=== PATIENT | male | born 1975 | race African-American/Black ===

== ENCOUNTER 2023-10-17 08:54 | Outpatient (AMB) | payer OTHER, SELFPAY ==
--- NOTE | 2023-10-17 09:00 | MHC.PC.OV ---
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: No Accompanied by: Self / Same As Patient Allergies No Known Allergies Allergy (Verified 10/17/23 09:15) Medication List - Last Reconciled 10/17/23 by Emma Kennedy MD No Known Home Meds Tobacco use date assessed: 10/17/23 Dental Screening Dental Screen Date: 10/17/23 Did you have a dental visit in the last 12 months?: Yes Did you have a dental problem in the last 6 months where you did not have access to dental care?: No Was dental information given to patient?: Patient has dentist HPI HPI Comments History of Present Illness Details This is a 48-year-old male that comes for his physical exam as a new patient. He has elevated blood pressure readings but denies ever having medication for blood pressure. Occasional chest pain but no shortness of breath. Small when he was a teenager. Has never had a colonoscopy. No change in bowel or bladder habits. [facility] Surgical History History of tooth extraction Family History Mother Breast cancer Mental health disorder Father Cancer Mental health disorder Social History (Updated 10/17/23 @ 09:21 by Emma Kennedy MD) Housing: House Alcohol intake: current Alcohol intake frequency: holidays/special occasions only Alcohol type: beer Patient Tobacco Use Status: Former Tobacco user e-Cigarette/Vaping Use: Never Used Second Hand Smoke Exposure: No service: No Current occupational status: employed Current occupational exposures/hazards: No Cognitive needs: No Hearing needs: No Vision needs: Yes Questionnaire PHQ-9 Over the last 2 weeks, how often have you been bothered by any of the following problems? 1. Little interest or pleasure in doing things: not at all 2. Feeling down, depressed, or hopeless: not at all 3. Trouble falling or staying asleep, or sleeping too much: not at all 4. Feeling tired or having little energy: not at all 5. Poor appetite or overeating: not at all 6. Feeling bad about yourself - or that you are a failure or have let yourself or your family down: not at all 7. Trouble concentrating on things, such as reading the newspaper or watching television: not at all 8. Moving or speaking so slowly that other people could have noticed. Or the opposite - being so fidgety or restless that you have been moving around a lot more than usual: not at all 9. Thoughts that you would be better off or of hurting yourself in some way: not at all Total score: 0 Depression Screening Interpretation: Negative Depression Screening Done: Yes 77801 - PHQ-9 Billing: Yes Source: Developed by Drs. Horacio Qiu, Marilee Baez, Mark Foreman and colleagues, with an educational evelyn from [employer]. Thrive Questionnaire Date Thrive assessed: 10/17/23 I am a: Patient What is your living situation today?: I have a steady place to live Within the past 12 months, did the food you bought not last and you didn't have the money to get more?: Never true Within the past 12 months, did you worry whether your food would run out before you got money to buy more?: Never true Do you have trouble paying for medicines?: No Do you have trouble getting transportation to medical appointments?: No Do you have trouble paying your heating and electricity bill?: No Do you have trouble taking care of your child, family member or friend?: No Do you have trouble with day-to-day activities such as bathing, preparing meals, shopping, managing finances, etc.?: No Are you currently unemployed and looking for a job?: No Are you interested in more education?: No Please select the resources that you would like help with: None Currently or been in a relationship where the following occur: no concerns reported THRIVE Score: 0 AUDIT C Alcohol Use Questionnaire (AUDIT-C) 1. How often do you have a drink containing alcohol?: Monthly or less 2. How many drinks containing alcohol do you have on a typical day when you are drinking?: 1 or 2 3. How often do you have six or more drinks on one occasion?: Never Total Score: 1 Score Reviewed/Action Taken: No RENETTA-7 AMB Questionnaire RENETTA-7 Date RENETTA - 7 assessed: 10/17/23 Feeling nervous, anxious, or on edge: 0 = Not at all Not being able to stop or control worryin = Not at all Worrying too much about different things: 0 = Not at all Trouble relaxin = Not at all Being so restless that it is hard to sit still: 0 = Not at all Becoming easily annoyed or irritable: 0 = Not at all Feeling afraid as if something awful might happen: 0 = Not at all Total RENETTA-7 score (0-4 normal; 5-9 mild; 10-14 moderate; 15-21 severe): 0 Source: Developed by Drs. Horacio Qiu, Marilee Baez, Mark Foreman and colleagues, with an educational evelyn from [employer]. RENETTA-7 Assessment Billing RENETTA-7 Assessment Tool: RENETTA-7 Assessment 86809 Review of Systems Const All systems reviewed & are unremarkable except as noted in HPI and below Card Reports chest pain at rest, Reports chest pain with activity, Denies edema, Denies irregular heart rhythm, Denies claudication, Denies dyspnea, Denies dyspnea on exertion, Denies orthopnea, Denies paroxysmal nocturnal dyspnea and Denies slow heart rate Resp Denies cough, Denies dyspnea and Denies dyspnea on exertion Physical exam (Primary Care) Vital Signs: Last Vital Signs BP 150/90 H 10/17/23 09:28 Care Plan Goal for BP management: Advised low-salt diet Next steps: Repeat blood pressure in 3 weeks by nurse navigator. BMI result Body Mass Index 29.4 Tobacco/Smoking Status: Tobacco use Status Tobacco use date assessed 10/17/23 10/17/23 09:08 Patient Tobacco Use Status Former Tobacco user 10/17/23 09:21 e-Cigarette/Vaping Use Never Used 10/17/23 09:21 PHQ-9: PHQ-9 Score PHQ-9: Total score 0 10/17/23 09:29 Depression Screening Interpretation: Negative Thrive Assessment: Date of Thrive Assessment Date Thrive assessed 10/17/23 10/17/23 09:08 Currently or been in a relationship where the following occur: no concerns reported Const Orientation/consciousness: patient oriented x3 HENMT Head: Yes normal to inspection, Yes normocephalic and Yes atraumatic Ears: external ears normal Eyes General: appearance normal, both eyes and all related structures Eyelids: Yes eyelids normal Conjunctivae: conjunctivae normal Neck Neck: Yes normal visual inspection and Yes supple Resp Effort & Inspection: normal respiratory effort Auscultation: clear to auscultation bilaterally Cardio Jugular venous distension: no JVD Rate: regular rate Rhythm: regular rhythm Heart sounds: S1 normal heart sound present and S2 normal heart sound present GI Inspection: Yes normal to inspection Palpation (GI): Soft to palpation and nontender Auscultation: normal bowel sounds Skin General skin exam: no rashes or lesions noted Neuro General: patient oriented x3 and no focal motor deficits Extrem General: Yes full ROM Psych Appearance: grossly normal Immunizations Boostrix Tdap 2.5 Lf unit-8 mcg-5 Lf/0.5 mL intramuscular syringe Performing Provider: Emma Kennedy MD Performing Location: [facility] Administered by: RYLIE Dejesus on 10/17/23 09:33 Dose Route Admin Location Dispensed Lot Number Expiration Date 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 Orders: Orders Comprehensive [facility]. Panel Fast Today Z00.00 - Encounter for general adult medical examination without abnormal findings ECG 12 lead EKG Today R07.9 - Chest pain, unspecified Lipid Panel Today Z00.00 - Encounter for general adult medical examination without abnormal findings TDaP Immunization Today Z23 - Encounter for immunization Referrals Open Access Screening Colonoscopy Referral Z12.11 - Encounter for screening for malignant neoplasm of colon Coding Level of Care Code New Pt Prev Care 40-64y(35097) Diagnoses Physical exam Z00.00 Additional Codes RENETTA-7 Assessment Billing - RENETTA-7 Assessment Tool: RENETTA-7 Assessment [id number] ([id number]) Time Spent (min) 33
[2023-10-17 09:02] VITALS: BP 150/100; BMI 29.4
[2023-10-17 09:28] VITALS: BP 150/90
== END 2023-10-17 09:42 | disposition home or self-care (01) ==
PROVIDERS: PCP Internal Medicine; Visit Provider Internal Medicine
DX: Z00.00 Encounter for general adult medical examination without abnormal findings (principal); Z23 Encounter for immunization
CPT/HCPCS: 90471; 90715; 99386

== ENCOUNTER 2024-09-09 15:18 | Outpatient (AMB) | payer OTHER, SELFPAY ==
[2024-09-09 15:19] VITALS: BP 146/92; PULSE 65; TEMP 36.3; O2SAT 95; BMI 28.3
--- NOTE | 2024-09-09 15:19 | MHC.PC.OV ---
Vital Signs 09/09/24 15:19 Height 6 ft 3 in Weight 226 lb 4 oz BMI 28.3 BP 146/92 H Blood Pressure Location Lt brachial Position Sitting Pulse 65 Pulse Source Pulse Oximeter Temp 97.3 F Temp Source Temporal Artery Scan Pulse Oximetry (%) 95 Oxygen Delivery Method Room Air Intake Visit Reasons: r/s from 03/12 bp Supervisor Functional Testing Required: No Accompanied by: Self / Same As Patient Allergies No Known Allergies Allergy (Verified 09/09/24 15:33) Medication List - Last Reconciled 09/09/24 by Emma Kennedy MD No Known Home Meds Tobacco use date assessed: 09/09/24 Dental Screening Dental Screen Date: 09/09/24 HPI HPI Comments History of Present Illness Details The patient is a 49-year-old male presenting with elevated blood pressure and chest pain. He notes that his blood pressure readings vary, with higher values observed during healthcare visits and normalization on re-checking. The patient does not currently check his blood pressure at home despite owning a monitor. He relates the elevated in-office readings, at times, to stress due to coming directly from work. The patient experiences intermittent left-sided chest pain, which occurs when he is relaxed or sitting and is described as faint. The pain does not occur with exertion and has no associated symptoms like shortness of breath. He has no significant family history of colon cancer and has not noticed any gastrointestinal symptoms that could be of concern. He recently had influenza and underwent an evaluation at urgent care, where a low heart rate was noted, prompting a visit to the emergency department. His medical workup, including blood tests and chest X-rays, did not reveal any abnormalities. [facility] Surgical History History of tooth extraction Family History Mother Breast cancer Mental health disorder Father Cancer Mental health disorder Social History Housing: House Alcohol intake: current Alcohol intake frequency: holidays/special occasions only Alcohol type: beer Patient Tobacco Use Status: Former Tobacco user e-Cigarette/Vaping Use: Never Used Second Hand Smoke Exposure: No service: No Current occupational status: employed Current occupational exposures/hazards: No Cognitive needs: No Hearing needs: No Vision needs: Yes Questionnaire PHQ-9 Over the last 2 weeks, how often have you been bothered by any of the following problems? 1. Little interest or pleasure in doing things: not at all 2. Feeling down, depressed, or hopeless: not at all 3. Trouble falling or staying asleep, or sleeping too much: not at all 4. Feeling tired or having little energy: not at all 5. Poor appetite or overeating: not at all 6. Feeling bad about yourself - or that you are a failure or have let yourself or your family down: not at all 7. Trouble concentrating on things, such as reading the newspaper or watching television: not at all 8. Moving or speaking so slowly that other people could have noticed. Or the opposite - being so fidgety or restless that you have been moving around a lot more than usual: not at all 9. Thoughts that you would be better off or of hurting yourself in some way: not at all Total score: 0 Depression Screening Interpretation: Negative Depression Screening Done: Yes 56318 - PHQ-9 Billing: Yes Source: Developed by Drs. Horacio Qiu, Marilee Baez, Mark Foreman and colleagues, with an educational evelyn from [employer]. Thrive Questionnaire Date Thrive assessed: 09/09/24 I am a: Patient What is your living situation today?: I have a steady place to live Within the past 12 months, did the food you bought not last and you didn't have the money to get more?: Never true Within the past 12 months, did you worry whether your food would run out before you got money to buy more?: Never true Do you have trouble paying for medicines?: No Do you have trouble getting transportation to medical appointments?: No Do you have trouble paying your heating and electricity bill?: No Do you have trouble taking care of your child, family member or friend?: No Do you have trouble with day-to-day activities such as bathing, preparing meals, shopping, managing finances, etc.?: No Are you currently unemployed and looking for a job?: No Are you interested in more education?: No Please select the resources that you would like help with: None Currently or been in a relationship where the following occur: No concerns reported THRIVE Score: 0 AUDIT C Alcohol Use Questionnaire (AUDIT-C) 1. How often do you have a drink containing alcohol?: Monthly or less 2. How many drinks containing alcohol do you have on a typical day when you are drinking?: 1 or 2 3. How often do you have six or more drinks on one occasion?: Never Total Score: 1 Score Reviewed/Action Taken: No RENETTA-7 AMB Questionnaire RENETTA-7 Date RENETTA - 7 assessed: 09/09/24 Feeling nervous, anxious, or on edge: 0 = Not at all Not being able to stop or control worryin = Not at all Worrying too much about different things: 0 = Not at all Trouble relaxin = Not at all Being so restless that it is hard to sit still: 0 = Not at all Becoming easily annoyed or irritable: 0 = Not at all Feeling afraid as if something awful might happen: 0 = Not at all Total RENETTA-7 score (0-4 normal; 5-9 mild; 10-14 moderate; 15-21 severe): 0 Source: Developed by Drs. Horacio Qiu, Marilee Baez, Mark Foreman and colleagues, with an educational evelyn from [employer]. RENETTA-7 Assessment Billing RENETTA-7 Assessment Tool: RENETTA-7 Assessment 84338 Review of Systems Const All systems reviewed & are unremarkable except as noted in HPI and below Card Denies chest pain at rest, Denies chest pain with activity, Denies edema, Denies irregular heart rhythm, Denies claudication, Denies dyspnea, Denies dyspnea on exertion, Denies orthopnea, Denies paroxysmal nocturnal dyspnea and Denies slow heart rate Resp Denies cough, Denies dyspnea and Denies dyspnea on exertion GI Denies abdominal pain, Denies change in bowel habits, Denies excessive flatus, Denies nausea and Denies vomiting Neuro Denies lack of coordination Physical exam (Primary Care) Vital Signs: Last Vital Signs Temp 97.3 F 09/09/24 15:19 Pulse 65 09/09/24 15:19 BP 146/92 H 09/09/24 15:19 Pulse Ox 95 09/09/24 15:19 Oxygen Delivery Method Room Air 09/09/24 15:19 BMI result Body Mass Index 28.3 Tobacco/Smoking Status: Tobacco use Status Tobacco use date assessed 09/09/24 09/09/24 15:28 Patient Tobacco Use Status Former Tobacco user 09/09/24 15:28 e-Cigarette/Vaping Use Never Used 09/09/24 15:28 PHQ-9: PHQ-9 Score PHQ-9: Total score 0 09/09/24 15:28 Depression Screening Interpretation: Negative Thrive Assessment: Date of Thrive Assessment Date Thrive assessed 09/09/24 09/09/24 15:28 Currently or been in a relationship where the following occur: No concerns reported Resp Effort & Inspection: normal respiratory effort Auscultation: clear to auscultation bilaterally Cardio Jugular venous distension: no JVD Rate: regular rate Rhythm: regular rhythm Heart sounds: S1 normal heart sound present and S2 normal heart sound present Extrem General: Yes full ROM Coding Level of Care Code Est Pt Level 3 (56722) Complex EM visit Add On G2211 Diagnoses Essential hypertension I10 Chest pain R07.9 Additional Codes RENETTA-7 Assessment Billing - RENETTA-7 Assessment Tool: RENETTA-7 Assessment 50837 ([id number]) PHQ-9 - 76992 - PHQ-9 Billing: Yes ([id number]) Time Spent (min) 19 Assessment & Plan Assessment & Plan (1) Essential hypertension: Code(s): I10 - Essential (primary) hypertension Category: Medical (2) Chest pain: Code(s): R07.9 - Chest pain, unspecified Category: Medical Plan I emphasized the need for the patient to monitor blood pressure at home to identify trends outside of clinical settings and adjust diet by reducing salt intake to control his essential hypertension better. I ordered an EKG to assess the patient's cardiac rhythm, considering the occurrence of chest pain. Comprehensive blood work including sugars, kidney, liver function, and cholesterol levels were ordered to evaluate overall health. Additionally, Cologuard testing was offered to assess the risk of colon cancer, contingent upon previous family history and current symptoms, with the potential for a colonoscopy if results indicated a concern. Patient was informed and verbally consented to the use of an ambient scribe for clinic note documentation during this visit. I discussed the variability of the patient's blood pressure readings and the potential benefit of home monitoring, emphasizing the importance of managing stress and dietary changes, including reducing salt intake. I ordered an EKG to provide further insights into the patient's cardiac rhythm with an acknowledgment of the chest pain reported. Further lab work to review metabolic functions was planned, coinciding with his next visit. I detailed the risk assessment advantages of Cologuard testing for colon cancer and provided instructions for completion. Follow-up plans were outlined, including future visits to monitor the effectiveness of these interventions and evaluate laboratory results. Orders: Orders Lipid Panel Today E78.5 - Hyperlipidemia, unspecified, R07.9 - Chest pain, unspecified Comprehensive [facility]. Panel Fast Today R07.9 - Chest pain, unspecified ECG 12 lead EKG Today R07.9 - Chest pain, unspecified Thyroid Stimulating Hormone Today R07.9 - Chest pain, unspecified Referrals Cologuard Test Z12.11 - Encounter for screening for malignant neoplasm of colon, Z12.12 - Encounter for screening for malignant neoplasm of rectum Patient Instructions: - Monitor blood pressure regularly at home. - Reduce salty foods in your diet. - Complete the EKG as ordered and notify of any new symptoms. - Use the Cologuard kit as per instructions to assess colon cancer risk. - Follow up for lab results and further evaluation as scheduled. - Seek immediate care if chest pain becomes more frequent or severe.
--- OUTSIDE RECORDS SUMMARY | 2024-09-09 18:02 | XMS_ITS | Data Portability ---
Author Organization [facility] [employer] [facility] [address] Address [address] [place] [address] Assessment No assessment recorded. Plan of Treatment Reminders Order Date Submit Date Provider Last Modified By Organization Details Last Modified Time Details Appointments None recorded. Lab None recorded. Referral None recorded. Procedures None recorded. Surgeries None recorded. Imaging None recorded. Medication Orders ofloxacin 0.3 % eye drops 2023 024 [id number], [address], [place], [phone], 4 11:34:18 Patient TargetsNo targets recorded. Patient InstructionsNo instructions recorded. Reason for Referral None Reported. Problems No Known Problems Procedures Surgical History Date Name Laterality Status Provider Name and Address Organization Details Recorded Time 4 OC-DOT PHYSICAL completed Tiana Smith [facility] [employer] 2024 08:39:07 3 OC-UDS Send Out Template DOT completed BISHNU STEVENSON [facility] 10/23/2022 14:38:31 Imaging Results None recorded. Procedure Notes None recorded. Medical Equipment None Reported. Allergies No known drug allergies Medications Name Sig Start Date Stop Date Status Note LastModified by Organization Details LastModified Time amoxicillin 500 mg capsule TAKE 1 CAPSULE BY MOUTH THREE TIMES DAILY 04/04 completed Not Available Not Available Not Available ofloxacin 0.3 % eye drops Instill 1 drop 4 times a day by ophthalmi c route for 10 days. 2023 active Not Available Not Available Not Avai lable ibuprofen 600 mg tablet TAKE 1 TABLET BY MOUTH EVERY 4 TO 6 HOURS NEEDED 11/16 /2024 completed Not Available Not Available Not Available Vitals Date Recorded Pain severity - 0-10 verbal numeric rating [Score] - Reported Body weight Body mass index (BMI) Body height Body temperature Respiratory rate Oxygen saturation Oxygen saturation in Arterial blood by Pulse oximetry Heart rate Systolic blood pressure Diastolic blood pressure Provider Name and Address Organization Details Last Updated DateTime 4 0 824809. 28 g 28.1 kg/m2 190.5 cm 97 [degF] 14 /min 97 % 97 % 64 /min 142 mm[Hg] 94 mm[Hg] Padma Eder PA - [facility] 11:28:41 Social History Question Answer Notes LastModified by Organizat ion Details LastModified Time Tobacco Smoking Status Never Smoker Padma alva PA - [facility] 04/04/2024 11:26:45 What Is Your Level Of Alcohol Consumption? None Information not available 04/04/2024 Have You Had A Flu Shot This Season? Yes Information not available 04/04/2024 Do You Use Any Illicit Or Recreational Drugs? No Information not available 04/04/2024 Have You Recently Traveled Abroad? No Information not available 04/04/2024 Do You Or Have You Ever Used Any Other Forms Of Tobacco Or Nicotine? No Information not available 04/04/2024 Sex: Unknown Functional Status None recorded. Mental Status None recorded. Family History Relationship Description Onset Age of this Age Resolved Age Notes LastModified by Organization Details LastModified Time Father No current problems or disability Not available 04/04 11:26:21 Mother No current problems or disability Not available 04/04 11:26:21 Medical History No medical history recorded. Past Encounters Encounter ID Performer Location Encounter Start Date Encounter Closed Date Diagnosis/Indication Diagnosis SNOMED-CT Code Diagnosis ICD10 Code Diagnosis Note [id number] [address] [address] 03/03/2017 15:25:47 03/03/2017 16:09:08 [id number] [address] [address] [address] 03/04/2017 15:04:42 03/04/2017 16:53:54 [id number] [address] [place] [address] 04/18/2015 09:10:20 04/18/2015 10:00:05 [id number] CECILIA PULIDO [address] [facility] [place] [address] 10/23/2022 14:20:04 10/23/2022 15:24:13 History and physical examination, occupation 892055639 Z02.1 [id number] CECILIA Hagan [address] [place] [address] 2024 08:02:22 2024 09:03:50 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 Denies any RX. Refer to scanned DOT physical exam forms and DOT certificat e for exam findings. Physical examination 588 0005 Z02.4 [id number] CECILIA Hagan [address] [place] [address] 04/04/2024 11:21:15 04/04/2024 11:36:01 Acute conjunctivitis of right eye 0299129098 11720 H10.31 Based on your presentati on and exam, you are going diagnosed with Conjunctiv itis. I am going to cover you for a bacterial infection in the eye with antibiotic eye drops. Sometimes these symptoms can be caused by a virus or allergies. Viral infections with spontaneou sly resolve after 7-10 days and do not require treatment. If it is an allergy cause sometime oral allergy medication s will help with these symptoms or a allergy eye drop that can be purchased OTC. The following are my recommenda tions to help with your symptoms and this diagnosis: 1. Do not rub your eyes this can cause it to spread or damage the cornea of your eye.2. Wash surfaces such as cell phones, remotes, door knob frequently , because this is how it is transmitte d to others.3. Do not wear contacts for at least 1 week if you have contacts.4 . No makeup5. You can take Ibuprofen or Tylenol for discomfort if you are not allergic to them.6. If you get lubricatin g eye drops and put them in the refrigerat or - this can help with itching and discomfort . You should be seen again if you develop any of the following symptoms1. Eye pain or pressure behind the eye.2. Redness or significan t swelling of the eyelid or around the eye3. Headache4. Fever > 100.55. No improvemen t in current symptoms in the next 1 week. Thank you for using [facility] today, please feel free to contact us with any questions or concerns. Health Concerns Section Related Observation LastModified by Organization Detai ls LastModified Time None Recorded Concern Status LastModified by Organization Details LastModified Time None Recorded Advance Directives Directive None Recorded Payers Encounter Date Sequence Insurance Name Policy Number Policy Borrego Covered Member ID Borrego Member ID Guarantor Name 03/03/2017 1 [place] [id number] Favio L Rony [id number] Favio Rony 03/04/2017 1 [place] [id number] Favio L Rony [id number] Favio Rony 10/23/2022 OC-ESCREEN Favio Rony [id number] Favio Rony 2024 OC-PAY AT TIME OF SERVICE 2022 Favio Rony OTHER OTHER Favio Rony 04/04/2024 1 [facility] [id number] Favio Rony [id number] Favio Rony Notes Date Note Type Note Provider Name and Address Organization Details Recorded Time 04/04/2024 text/html 49 y/o male with 1 week of R eye redness and discharge, discomfort, but no real pain, no blurry vision CECILIA Hagan [address] [place], [address], PA - [facility] 04/04/2024 11:40:13
== END 2024-09-09 15:44 | disposition home or self-care (01) ==
LOC: HO.HMCH 15:19
PROVIDERS: PCP Internal Medicine; Visit Provider Internal Medicine
DX: I10 Essential (primary) hypertension (principal); R07.9 Chest pain, unspecified

== ENCOUNTER → 2024-09-09 15:18 | Outpatient (BNVA) | payer OTHER, SELFPAY | PROVIDERS: PCP Internal Medicine; Visit Provider Internal Medicine | DX: R07.9 Chest pain, unspecified (principal); I10 Essential (primary) hypertension | CPT/HCPCS: 96127 ==

== ENCOUNTER 2024-11-16 08:32 | Outpatient (AMB) | payer OTHER, SELFPAY ==
--- OUTSIDE RECORDS SUMMARY | 2024-11-16 08:44 | XMS_ITS | Data Portability ---
Author Organization [facility]ECILIA [facility] [address] Address [address] [place] [address] Assessment No assessment recorded. Plan of Treatment Reminders Order Date Submit Date Provider Last Modified By Organization Details Last Modified Time Details Appointments None recorded. Lab None recorded. Referral None recorded. Procedures None recorded. Surgeries None recorded. Imaging None recorded. Medication Orders ofloxacin 0.3 % eye drops 2023 024 [facility][id number], [address] [place], [place], [phone], 4 11:34:18 Patient TargetsNo targets recorded. Patient InstructionsNo instructions recorded. Reason for Referral None Reported. Problems No Known Problems Procedures Surgical History Date Name Laterality Status Provider Name and Address Organization Details Recorded Time 4 OC-DOT PHYSICAL completed Tiana Smith [place] - [facility] 2024 08:39:07 3 OC-UDS Send Out Template DOT completed BISHNU STEVENSON [facility] 10/23/2022 14:38:31 Imaging Results None recorded. Procedure [...] MOUTH EVERY 4 TO 6 HOURS NEEDED 04/04 completed Not Available Not Available Not Available Vitals Date Recorded Body weight Body mass index (BMI) Body height Body temperature Respiratory rate Oxygen saturation Oxygen saturation in Arterial blood by Pulse oximetry Heart rate Systolic blood pressure Diastolic blood pressure Provider Name and Address Organization Details Last Updated DateTime 4 915808. 28 g 28.1 kg/m2 190.5 cm 97 [degF] 14 /min 97 % 97 % 64 /min 142 mm[Hg] 94 mm[Hg] Padma Rafael Pena PA - [facility] 4 11:28:41 Social History Question Answer Notes LastModified by [employer] Details LastModified Time Tobacco Smoking Status Never Smoker Padma Rafael Pena null, PA - [facility] 04/04/2024 11:26:45 Have You Had A Flu Shot This Season? Yes Information not available 04/04/2024 Have You Recently Traveled Abroad? No Information not available 04/04/2024 Sex: Unknown Functional Status Question Answer Note LastModified by [employer] Details LastModified Time Do you use any illicit or recreational drugs? No Information not available 04/04/2024 Do you or have you ever used any other forms of tobacco or nicotine? No Information not available 04/04/2024 What is your level of alcohol consumption? None Information not available 04/04/2024 Mental Status None recorded. Family History Relationship [...] SNOMED-CT Code Diagnosis ICD10 Code Diagnosis Note [id number] [address] [address] 03/03/2017 15:25:47 03/03/2017 16:09:08 [id number] [address] [place] [address] 03/04/2017 15:04:42 03/04/2017 16:53:54 [id number] [address] [place] [address] 04/18/2015 09:10:20 04/18/2015 10:00:05 [id number] Duke Anguiano NP [address] [place] [address] 10/23/2022 14:20:04 10/23/2022 15:24:13 History and physical examination, occupation [id number] Z02.1 [id number] CECILIA Hagan [address] [address] [place] [address] 2024 08:02:22 2024 09:03:50 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 Denies any RX. Refer to scanned DOT physical exam forms and DOT certificat e for exam findings. Physical examination 588 0005 Z02.4 [id number] [facility]ILIA Hagan [address] [facility] [address] [place] [address] 04/04/2024 11:21:15 04/04/2024 11:36:01 Acute conjunctivitis of right eye 2245001109 45727 H10.31 Based on your presentati on and [...] Recorded Advance Directives Directive None Recorded Payers Insurance Date Sequence Insurance Name Policy Number Policy Borrego Covered Member ID Borrego Member ID Guarantor Name 04/04/2024 1 [facility] [id number] Favio Garrisonon [id number] Favio Garrisonon 04/04/2024 PAY AT TOS Favio Garrisonon OTHER OTHER Favio Rony 04/04/2024 1 [employer] (PPO) [id number] Favio L Rony [id number] Favio Garrisonon 04/04/2024 OC-ESCREEN Favio Rony [id number] Favio Garrisonon 04/04/2024 OC-PAY AT TIME OF SERVICE 2022 Favio Torresnson OTHER OTHER Favio Rony Notes Date Note Type Note Provider Name and Address Organization Details Recorded Time 04/04/2024 text/html 49 y/o male with 1 week of R eye redness and discharge, discomfort, but no real pain, no blurry vision CECILIA Hagan [address] [place], [address], PA - [facility] 04/04/2024 11:40:13
[2024-11-16 08:49] VITALS: BP 130/86; BMI 27.6
--- NOTE | 2024-11-16 08:49 | MHC.PC.OV ---
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 Accompanied by: Self / Same As Patient Allergies No Known Allergies Allergy (Verified 11/16/24 09:07) Medication List - Last Reconciled 11/16/24 by Emma Kennedy MD No Known Home Meds Tobacco use date assessed: 09/09/24 Dental Screening Dental Screen Date: 11/16/24 Did you have a dental visit in the last 12 months?: Yes Did you have a dental problem in the last 6 months where you did not have access to dental care?: No Was dental information given to patient?: Patient has dentist HPI HPI Comments History of Present Illness Details The patient is a 49-year-old male presenting with chest pain and hypertension. The chest pain was previously experienced on the left side of the chest, occurring intermittently during the day, particularly with movement, and not at rest or during sleep. The pain was not persistent throughout the day and would come and go without a consistent pattern. The patient has a history of hypertension, which has been well-controlled with recent home blood pressure readings showing 129/88 mmHg. No medications are currently being taken for hypertension, and the patient monitors blood pressure regularly at home. Preventative care measures include a recommendation for colon cancer screening using a stool test (Cologuard), which the patient plans to complete despite a previous scheduling conflict. [facility] Surgical History History of tooth extraction Family History Mother Breast cancer Mental health disorder Father Cancer Mental health disorder Social History Housing: House Alcohol intake: current Alcohol intake frequency: holidays/special occasions only Alcohol type: beer Patient Tobacco Use Status: Former Tobacco user e-Cigarette/Vaping Use: Never Used Second Hand Smoke Exposure: No service: No Current occupational status: employed Current occupational exposures/hazards: No Cognitive needs: No Hearing needs: No Vision needs: Yes Questionnaire PHQ-9 Over the last 2 weeks, how often have you been bothered by any of the following problems? 1. Little interest or pleasure in doing things: not at all 2. Feeling down, depressed, or hopeless: not at all 3. Trouble falling or staying asleep, or sleeping too much: not at all 4. Feeling tired or having little energy: not at all 5. Poor appetite or overeating: not at all 6. Feeling bad about yourself - or that you are a failure or have let yourself or your family down: not at all 7. Trouble concentrating on things, such as reading the newspaper or watching television: not at all 8. Moving or speaking so slowly that other people could have noticed. Or the opposite - being so fidgety or restless that you have been moving around a lot more than usual: not at all 9. Thoughts that you would be better off or of hurting yourself in some way: not at all Total score: 0 Depression Screening Interpretation: Negative Depression Screening Done: Yes 52871 - PHQ-9 Billing: Yes Source: Developed by Drs. Horacio Qiu, Marilee Baez, Mark Foreman and colleagues, with an educational evelyn from [employer]. Thrive Questionnaire Date Thrive assessed: 09/09/24 I am a: Patient What is your living situation today?: I have a steady place to live Within the past 12 months, did the food you bought not last and you didn't have the money to get more?: I choose not to answer this question Within the past 12 months, did you worry whether your food would run out before you got money to buy more?: I choose not to answer this question Do you have trouble paying for medicines?: No Do you have trouble getting transportation to medical appointments?: No Do you have trouble paying your heating and electricity bill?: No Do you have trouble taking care of your child, family member or friend?: No Do you have trouble with day-to-day activities such as bathing, preparing meals, shopping, managing finances, etc.?: No Are you currently unemployed and looking for a job?: Yes Are you interested in more education?: No Please select the resources that you would like help with: None Currently or been in a relationship where the following occur: I choose not to answer THRIVE Score: 0 AUDIT C Alcohol Use Questionnaire (AUDIT-C) 1. How often do you have a drink containing alcohol?: Never Total Score: 0 Score Reviewed/Action Taken: No RENETTA-7 AMB Questionnaire RENETTA-7 Date RENETTA - 7 assessed: 09/09/24 Feeling nervous, anxious, or on edge: 0 = Not at all Not being able to stop or control worryin = Not at all Worrying too much about different things: 0 = Not at all Trouble relaxin = Not at all Being so restless that it is hard to sit still: 0 = Not at all Becoming easily annoyed or irritable: 0 = Not at all Feeling afraid as if something awful might happen: 0 = Not at all Total RENETTA-7 score (0-4 normal; 5-9 mild; 10-14 moderate; 15-21 severe): 0 Source: Developed by Drs. Horacio Qiu, Marilee Baez, Mark Foreman and colleagues, with an educational evelyn from [employer]. RENETTA-7 Assessment Billing RENETTA-7 Assessment Tool: RENETTA-7 Assessment 44092 Review of Systems Const All systems reviewed & are unremarkable except as noted in HPI and below Card Denies chest pain at rest, Reports chest pain with activity, Denies edema, Denies irregular heart rhythm, Denies claudication, Denies dyspnea, Denies dyspnea on exertion, Denies orthopnea, Denies paroxysmal nocturnal dyspnea and Denies slow heart rate Resp Denies cough, Denies dyspnea and Denies dyspnea on exertion GI Denies abdominal pain, Denies change in bowel habits, Denies excessive flatus, Denies nausea and Denies vomiting Denies urinary hesitancy, Denies urinary incontinence and Denies urinary urgency Musc Denies abnormal gait, Denies atrophy, Denies deformity and Denies limited range of motion Skin/Breast Denies bleeding lesions, Denies changing lesions and Denies rash Neuro Denies abnormal gait, Denies behavioral changes and Denies lack of coordination Psych Denies behavioral changes Physical exam (Primary Care) Vital Signs: Last Vital Signs BP 130/86 11/16/24 08:49 BMI result Body Mass Index 27.6 Tobacco/Smoking Status: Tobacco use Status Tobacco use date assessed 09/09/24 11/16/24 08:55 Patient Tobacco Use Status Former Tobacco user 11/16/24 08:55 e-Cigarette/Vaping Use Never Used 11/16/24 08:55 PHQ-9: PHQ-9 Score PHQ-9: Total score 0 11/16/24 09:12 Depression Screening Interpretation: Negative Thrive Assessment: Date of Thrive Assessment Date Thrive assessed 09/09/24 11/16/24 08:55 Currently or been in a relationship where the following occur: I choose not to answer Resp Effort & Inspection: normal respiratory effort Auscultation: clear to auscultation bilaterally Cardio Jugular venous distension: no JVD Rate: regular rate Rhythm: regular rhythm Heart sounds: S1 normal heart sound present and S2 normal heart sound present Extrem General: Yes full ROM Coding Level of Care Code Est Pt Level 3 (45848) Complex EM visit Add On G2211 Diagnoses Chest pain R07.9 Additional Codes RENETTA-7 Assessment Billing - RENETTA-7 Assessment Tool: RENETTA-7 Assessment 81065 ([id number]) PHQ-9 - 01941 - PHQ-9 Billing: Yes ([id number]) Time Spent (min) 19 Assessment & Plan Assessment & Plan (1) Chest pain: Code(s): R07.9 - Chest pain, unspecified Category: Medical Plan The plan includes conducting an EKG and laboratory tests to rule out cardiac causes of the chest pain, as the patient has experienced intermittent pain on the left side of the chest. The patient is advised to continue monitoring blood pressure at home, given the history of hypertension, and to maintain regular follow-ups. Preventative care includes completing the colon cancer screening with a stool test Cologuard) as previously recommended. Patient was informed and verbally consented to the use of an ambient scribe for clinic note documentation during this visit.
== END 2024-11-16 09:13 | disposition home or self-care (01) ==
LOC: HO.HMCH 08:33
PROVIDERS: PCP Internal Medicine; Visit Provider Internal Medicine
DX: R07.9 Chest pain, unspecified (principal)

== ENCOUNTER → 2024-11-16 08:32 | Outpatient (REF) | payer OTHER, SELFPAY ==
--- NOTE | 2024-11-16 09:26 | ECG_ITS ---
Test Reason : R07.9 - Chest pain, unspecified Blood Pressure : */* mmHG Vent. Rate : 56 BPM Atrial Rate : 56 BPM P-R Int : 180 ms QRS Dur : 106 ms QT Int : 434 ms P-R-T Axes : 69 58 59 degrees QTcB Int : 418 ms Sinus bradycardia Nonspecific T wave abnormality Abnormal ECG No previous ECGs available Referred By: Emma Kennedy Electronically Signed By: JEN TOLENTINO MD
== END ==
LOC: HO.CARD 08:32
PROVIDERS: PCP Internal Medicine; Visit Provider Internal Medicine
DX: R07.9 Chest pain, unspecified (principal); I10 Essential (primary) hypertension; Z13.31 Encounter for screening for depression
CPT/HCPCS: 93005; 96127

== ENCOUNTER → 2024-11-16 09:26 | Outpatient (BNV) | payer OTHER, SELFPAY | PROVIDERS: PCP Internal Medicine; Visit Provider Internal Medicine Cardiovascular Disease | DX: R00.1 Bradycardia, unspecified (principal) | CPT/HCPCS: 93010 ==

== ENCOUNTER → 2024-12-21 03:23 | Outpatient (BNV) | payer OTHER, SELFPAY | PROVIDERS: PCP Internal Medicine; Visit Provider Specialist | DX: M25.461 Effusion, right knee (principal) | CPT/HCPCS: 73560 ==

== ENCOUNTER 2024-12-21 03:59 | Inpatient (IN) | payer OTHER, SELFPAY ==
--- NOTE | ~2024-12-21 | CT_ITS ---
EXAMINATION: CT KNEE WITHOUT CONTRAST, RIGHT CLINICAL INFORMATION: Right knee pain COMPARISON: None available. TECHNIQUE: Axial CT was performed from the mid thigh to the mid lower leg without contrast. Coronal and sagittal reformatted images were generated from the original axial data set. ALARA: The examination used one or more of the following radiation dose reduction techniques: Automated exposure control, iterative reconstruction, and/or adjustment of mA and/or KV. DLP: 281 mGY*cm Menisci: ACL/PCL: ACL and PCL appear grossly intact Extensor mechanism: Although not optimally demonstrated by CT, quadriceps tendon appears avulsed from the superior pole patella and retracted 2-3 cm. There is a joint effusion with higher density lobulated mass within the dependent portion of the joint effusion.. There is a corticated osseous fragment at the distal end of the retracted quadriceps tendon. There may be superficial fibers still intact. MCL/LCL: MCL is grossly intact. LCL complex is grossly intact. Bones/Marrow: No fractures are evident. Intercondylar tubercles are peaked. There are small marginal osteophytes involving the medial femoral condyle, not side of the lateral femoral condyle, lateral tibial plateau, and patella. There is a densely corticated lobulated lucency in the superficial superior pole of patella 9 mm in size, approximately the same size as the same size as a bony fragment that is attached to the distal end of a quadricep tendon. Soft tissues: Grossly unremarkable. CT/CT knee RT wo IV con IMPRESSION: Avulsion of the quadriceps tendon with 2-3 cm retraction. Avulsed bony fragment appears corticated raising question of chronicity. There is a complex joint effusion. High density within the effusion could represent blood products or synovial thickening. Electronically signed by: Win Larose MD 12/21/2024 12:47 PM EDT
--- NOTE | ~2024-12-21 | XR_ITS ---
CLINICAL HISTORY: right knee pain 2 view right knee Comparison: None provided Findings: Bones intact. No dislocations. No significant loss of joint space, osteophytes, or erosions. There is a joint effusion. There is a questionable intra-articular osseous loose body. No radiopaque foreign body. IMPRESSION: 1. Joint effusion with possible intra-articular loose body. Consider CT to further evaluate. This document has been electronically signed by: Delfino Joshua MD on 12/21/2024 06:43:53
[2024-12-21 04:04] VITALS: BP 145/91; PULSE 69; RESP 16; TEMP 36.7; O2SAT 95; BMI 27.5
--- NOTE | 2024-12-21 07:58 | ED.EXTPRO ---
HPI - Extremity Problem General Chief complaint: Extremity Problem Stated complaint: knee pain/inj Time Seen by Provider: 12/21/24 07:57 Source: patient and RN notes reviewed Mode of arrival: ambulatory Limitations: no limitations History of Present Illness ED Provider: Mary Costa PA-C HPI Narrative: This is a 49-year-old male, with no known medical problems, who presents emergency department with complaints of right knee pain since 1:00 p.m. yesterday. Patient states that while he jumped to dive into a pool he felt a popping sensation in his right knee. He states that he had pain at that time. He states that gradually over the course of last night into this morning he has had increased pain and swelling to his right knee. Denies any former injury to his knee in the past. Patient states that he does not have any pain at rest however states that pain worsens with weight-bearing. He took ibuprofen last night which provided him with some relief. No other complaints or concerns at this time. MD Complaint: extremity pain and extremity swelling Location: right and lower extremity Quality: aching Radiation: none Relieving factors: cold therapy, immobilization and rest Exacerbating factors: weight bearing and walking Associated symptoms: denies other symptoms Related Data Home Medications ?Medication ?Instructions ?Recorded ?Confirmed multivit,Ca,min-iron 8 mg-folic 1 tab PO DAILY 12/21/24 12/21/24 acid 200 mcg-lycopene 600 mcg tablet (Men's Daily Multivitamin) Allergies Allergy/AdvReac Type Severity Reaction Status Date / Time No Known Allergies Allergy Verified 12/21/24 04:07 Review of Systems Review of Systems: Yes all other systems are reviewed and are negative Constitutional: Constitutional: Reports as per HPI [facility] Past Medical History Surgical History History of tooth extraction Family History Family History Mother Breast cancer Mental health disorder Father Cancer Mental health disorder Social History Social History Housing: House Unable to assess alcohol history related to: Unknown Alcohol intake: current Alcohol intake frequency: holidays/special occasions only Alcohol type: beer Patient Tobacco Use Status: Former Tobacco user Smoked in Last 30 Days: No e-Cigarette/Vaping Use: Never Used Second Hand Smoke Exposure: No Advance Directives: No Advance Directives Information Provided: No Nutrition Risks: No Nutritional Risk service: No Current occupational status: employed Current occupational exposures/hazards: No Cognitive needs: No Hearing needs: No Vision needs: Yes Physical Exam Vital Signs: Vital Signs: Last Vital Signs Temp 97.6 F 12/21/24 15:23 Pulse 64 12/21/24 15:23 Resp 16 12/21/24 15:23 BP 155/109 H 12/21/24 15:23 Pulse Ox 97 12/21/24 15:23 O2 Del Method Room Air 12/21/24 15:23 BMI result Body Mass Index 27.5 Const: General: cooperative, comfortable and no acute distress Orientation/consciousness: patient oriented x3 Limitations: no limitations HEENT: Head: Yes normal to inspection, Yes normocephalic and Yes atraumatic Ears: hearing grossly normal bilaterally General nose exam: Normal external nose present Face and sinus: Yes normal facial exam Mouth: Normal oral and palatal mucosa present, oropharynx normal and moist mucous membranes Throat: Yes posterior oropharynx normal Eyes: General: appearance normal, both eyes and all related structures Eyelids: Yes eyelids normal Conjunctivae: conjunctivae normal Sclerae: sclerae normal Pupils: Equal, round and reactive pupils present EOM: EOMs intact bilaterally Neck: Neck: Yes normal visual inspection, Yes full ROM and Yes no lymphadenopathy Lymphatic: no lymphadenopathy noted Chest: Chest palpation & inspection: normal inspection of the chest Resp: Effort & Inspection: normal respiratory effort and able to speak in complete sentences Auscultation: clear to auscultation bilaterally, no crackles, no rales, no rhonchi and no wheezes Cardio: Rate: regular rate Rhythm: regular rhythm Heart sounds: S1 normal heart sound present and S2 normal heart sound present GI: Inspection: Yes normal to inspection Skin: General skin exam: no rashes or lesions noted Trauma: no lacerations or abrasions Wounds: no wounds Neuro: General: patient oriented x3 and moves all extremities Cranial nerves: Yes Equal, round and reactive pupils present Extrem: Other: Right knee with moderate edema noted throughout the entire knee, nontender, able to flex approximately 20-30 degrees. He is unable to perform a straight leg raise due to weakness. Unable to extend at the knee. Strong distal pulse. No overlying skin changes. No open wounds or lacerations. No calf tenderness. Achilles tendon is intact. No palpable deformity noted at the distal quad. General: Yes normal to inspection Right upper extremity: normal to inspection Left upper extremity: normal to inspection Right lower extremity: normal to inspection Left lower extremity: normal to inspection Medications Administered Generic Name Dose Route Start Last Admin Trade Name Freq PRN Reason Stop Dose Admin Sodium Chloride 3 ml 12/21/24 16:00 12/21/24 15:45 0.9 % Sodium Chloride Flush 3 Ml Syringe IVFLUSH Not Given QSHIFT NICHOLAS Discontinued Medications Generic Name Dose Route Start Last Admin Trade Name Freq PRN Reason Stop Dose Admin Acetaminophen 975 mg 12/21/24 08:20 12/21/24 08:30 Acetaminophen 325 Mg Tablet PO 12/21/24 08:21 975 mg ONCE ONE Administration Medical Decision Making Medical Decision Making [facility] Narrative: This is a 49-year-old male who presents emergency department with concerns of right knee pain since yesterday. He states that he jumped and felt a popping sensation in his right knee. He has had increased swelling and pain with weight-bearing since. On arrival, vital signs reveal mildly hypertensive at 145/91. Due to prolonged ER wait times, patient was not officially seen until proximally 8:15 a.m. this morning. X-ray was ordered prior to my evaluation, which revealed a joint effusion with possible intra-articular loose body. Given this finding, I am obtaining a CT scan. Differential diagnoses include internal ligament derangement, quadricep tendon rupture, fracture, sprain, strain. Will medicate with Tylenol p.o. awaiting for the CT scan. 10:00AM - patient patient only waiting for CT scan results as patient went at approximately 8:45 a.m. this morning. Awaiting official report. 12:05PM - spoke to CT techs to see what the delay was, they are reaching out to the radiology team. 12:38PM - still experiencing significant delays, I reached out to radiology numerous times without solution. It appears that there were multiple images missing therefore they could not put in a official radiology report. 12:45PM- report returns, there is an avulsion of the quadriceps tendon with 2-3 cm retraction, avulsed bony fragment appears corticated raising concern for chronicity. There is a complex joint effusion, high density within the effusion could represent blood products or synovial thickening. Given this finding, I reached out to the orthopedic [facility] who will assess patient [id number] - patient was assessed by Alexy Combs PA-C. There is a high concern for quadriceps tendon rupture therefore patient will be admitted to the orthopedic surgical service, patient will be made NPO at midnight. Likely surgery tomorrow. Will obtain basic labs, type and screen, EKG for medical clearance. Discussed overall workup with patient, he is agreeable for admission. Transfer of care initiated. Differential Diagnosis Differential Diagnoses: The differential diagnosis associated with the presentation includes See above Admission/Observation Consideration of admission/observation: Escalation of care including admission/observation considered Patient requiring admission. Consult Healthcare Provider Management of the patient was discussed with: Family Consumer Science Teacher Alexy Combs PA-C Lab Data MDM Lab Attestation statement: I reviewed the patient's lab results. No leukocytosis, stable H&H, chemistry revealing slight elevation in T bili at 1.6, LFTs within normal limits. No previous for comparison. 12/21/24 13:44 12/21/24 14:13 Independent Interpretation I performed an independent interpretation of an: EKG Interpretation: EKG sinus bradycardic at a rate of 58 beats per minute with a nonspecific T-wave abnormality seen in V5 and V6. This was seen on previous EKG performed on November 16, 2024. No STEMI. Radiology Impression Discussion of test interpretation with radiology: I have reviewed the radiologist's reading. Radiologist Impression: Findings: Bones intact. No dislocations. No significant loss of joint space, osteophytes, or erosions. There is a joint effusion. There is a questionable intra-articular osseous loose body. No radiopaque foreign body. IMPRESSION: 1. Joint effusion with possible intra-articular loose body. Consider CT to further evaluate. This document has been electronically signed by: Delfino Joshua MD on 12/21/2024 06:43:53 Dictated By: Delfino Joshua MD Menisci: ACL/PCL: ACL and PCL appear grossly intact Extensor mechanism: Although not optimally demonstrated by CT, quadriceps tendon appears avulsed from the superior pole patella and retracted 2-3 cm. There is a joint effusion with higher density lobulated mass within the dependent portion of the joint effusion.. There is a corticated osseous fragment at the distal end of the retracted quadriceps tendon. There may be superficial fibers still intact. MCL/LCL: MCL is grossly intact. LCL complex is grossly intact. Bones/Marrow: No fractures are evident. Intercondylar tubercles are peaked. There are small marginal osteophytes involving the medial femoral condyle, not side of the lateral femoral condyle, lateral tibial plateau, and patella. There is a densely corticated lobulated lucency in the superficial superior pole of patella 9 mm in size, approximately the same size as the same size as a bony fragment that is attached to the distal end of a quadricep tendon. Soft tissues: Grossly unremarkable. CT/CT knee RT wo IV con IMPRESSION: Avulsion of the quadriceps tendon with 2-3 cm retraction. Avulsed bony fragment appears corticated raising question of chronicity. There is a complex joint effusion. High density within the effusion could represent blood products or synovial thickening. Electronically signed by: Win Larose MD 12/21/2024 12:47 PM EDT Dictated By: Win Larose MD Prescription Management I considered prescription management with: Pain Medication Critical Care Time Critical Care Time Critical Care Time: Yes Total Critical Care Time: 43 Attestation: I have personally provided critical care time exclusive of time spent on separately billable procedures. Time includes review of lab data, radiology results, discussion with consultants, and monitoring for potential decompensation. Intervention performed as documented. Discharge Plan Discharge Clinical Impression: Rupture of right quadriceps tendon Patient Disposition: Admitted As Inpatient
--- NOTE | 2024-12-21 08:04 | PC.NURSE ---
PT has a moderate amount of edema and pain. Increase pain when WB. ice pack replaced, requierd cane for ambulation to the BR. Awaiting provider.
[2024-12-21 08:09] VITALS: BP 157/97; PULSE 66; RESP 18; TEMP 36.9; O2SAT 99
--- NOTE | 2024-12-21 08:23 | PC.NURSE ---
pt was seen by provider and plan is for CT scan and medication for pain
--- NOTE | 2024-12-21 13:12 | PC.NURSE ---
Ortho specialist (Alexy) at bedside speaking with patient at this time.
--- NOTE | 2024-12-21 13:25 | ECG_ITS ---
Test Reason : MED CLEARENCE Blood Pressure : */* mmHG Vent. Rate : 58 BPM Atrial Rate : 58 BPM P-R Int : 182 ms QRS Dur : 100 ms QT Int : 420 ms P-R-T Axes : 59 21 43 degrees QTcB Int : 412 ms Sinus bradycardia Nonspecific T wave abnormality Abnormal ECG When compared with ECG of 16-Nov-2024 09:31, No significant change was found Referred By: Mary Costa Electronically Signed By: YAMEL ANGEL
--- NOTE | 2024-12-21 13:45 | P.CONOP_ITS ---
History of Present Illness HPI Consult date: 12/21/24 Chief complaint: knee pain/inj Narrative: Patient is a 49-year-old male with past medical history significant for hypertension who presents to the emergency department for right knee injury patient reports that approximately 13:00 yesterday, he attempted to jump off of a diving board into the pool and felt polyp in his right knee Patient reports that he was able to swim to the side of the pool, but required assistance to ambulate afterwards Patient presented to the emergency department very early this morning X-ray showed small avulsion injury from the superior aspect of the right patella CT scan also revealed 2-3 cm retraction of quad tendon and small bony avulsion injury Today, the patient reports that the right knee is very swollen, particularly directly above the patella Reports significant weakness with range of motion of the right lower extremity No other acute complaints or concerns at this time Review of Systems Review of Systems: Yes all other systems are reviewed and are negative PMFSH Family History Family History Mother Breast cancer Mental health disorder Father Cancer Mental health disorder Surgical History Surgical History History of tooth extraction Social History Social History Housing: House Unable to assess alcohol history related to: Unknown Alcohol intake: current Alcohol intake frequency: holidays/special occasions only Alcohol type: beer Patient Tobacco Use Status: Former Tobacco user Smoked in Last 30 Days: No e-Cigarette/Vaping Use: Never Used Second Hand Smoke Exposure: No Advance Directives: No Advance Directives Information Provided: No service: No Current occupational status: employed Current occupational exposures/hazards: No Cognitive needs: No Hearing needs: No Vision needs: Yes Meds Allergies Allergy/AdvReac Type Severity Reaction Status Date / Time No Known Allergies Allergy Verified 12/21/24 04:07 Active Medications: Current Medications Acetaminophen (Acetaminophen 325 Mg Tablet) 650 mg PO Q6H PRN PRN Reason: Pain, Mild 1-3,fever,headache Hydromorphone HCl (Hydromorphone Hcl 0.5 Mg/0.5 Ml Syringe) 0.25 mg IVPUSH Q4H PRN; Protocol PRN Reason: Pain, Severe (Pain Scale 7-10) Cefazolin Sodium/Dextrose (Ancef) 2 gm in 50 mls @ 100 mls/hr IV PREOP ONE Stop: 12/22/24 08:29 Magnesium Hydroxide (Milk Of Magnesia 30 Ml Oral.Susp) 30 ml PO DAILY PRN PRN Reason: Constipation Melatonin (Melatonin 3 Mg Tablet) 6 mg PO BEDTIME PRN PRN Reason: Insomnia Oxycodone HCl (Oxycodone Hcl Immed Release 5 Mg Tablet) 5 mg PO Q4H PRN PRN Reason: Pain, Moderate(Pain Scale 4-6) Sodium Chloride (0.9 % Sodium Chloride Flush 3 Ml Syringe) 3 ml IVFLUSH QSHIFT [facility] Home Medications ?Medication ?Instructions ?Recorded ?Confirmed ?Last Taken ?Type No Known Home Meds 10/17/23 11/16/24 Un known History Physical Exam Vital Signs: Vital Signs: Last Vital Signs Temp 98.4 F 12/21/24 08:09 Pulse 66 12/21/24 08:09 Resp 18 12/21/24 08:09 BP 157/97 H 12/21/24 08:09 Pulse Ox 99 12/21/24 08:09 O2 Del Method Room Air 12/21/24 08:09 BMI result Body Mass Index 27.5 Extrem: Other: Patient's right knee swollen to inspection, particularly in the suprapatellar region No erythema, ecchymosis noted No lacerations, abrasions, open areas No evidence of infection Patient reports mild tenderness to palpation of the suprapatellar region of the right knee No tenderness to palpation elsewhere in the right knee Patient is unable to actively extend at the right knee at this time Patient is unable to straight leg raise the right leg off of the bed Patient also unable to hold passive straight leg raise of the right lower extremity off the bed Distal sensation intact Capillary refill brisk Results Labs Labs: All other labs normal. Diagnostic results Knee x-ray: report reviewed and image reviewed Knee CT: report reviewed and image reviewed Assessment and Plan (1) Rupture of right quadriceps tendon: Status: Acute Plan 1. Right distal quadriceps tendon rupture Date of injury 12/20/2024 Patient is educated about this condition Patient is educated about the typical treatment course Case was discussed with Dr. Powers, and a collaborative treatment plan was formed: At this time, patient will be admitted to the hospital for observation and in preparation of surgical intervention I educated the patient about the condition. I discussed both operative and nonoperative treatment options. The patient would like to proceed with surgery. The risks and benefits of operative treatment were discussed with the patient and the patient wishes to proceed with surgery. These risks include, but are not limited to, risk of damage to blood vessels, nerves, tendons, infection, recurrence, incomplete relief of preoperative symptoms, persistent pain, possible need for further surgery, and the risks associated with regional blocks and/or anesthesia. Plan is to take the patient to the operating room tomorrow, 12/22/2024 for the following procedures: 1. Right quadriceps tendon repair NPO at midnight for surgery tomorrow Knee immobilizer at all times Right knee elevation as much as possible Hospitalist service consulted for surgical clearance Procedures Date of Service Date of Service: 12/21/24
[2024-12-21 13:49] LABS: MANUAL DIFF FLAG NO
[2024-12-21 13:50] LABS: Hematocrit 45.8 % (42.0-52.0); Hemoglobin 15.5 g/dl (14.0-18.0); Imm Gran Abs Auto 0.03 X10*3/uL (0.00-0.03); Imm Gran Pct Auto 0.4 % (0.0-0.4); Lymphocytes Absolute Auto 3.3 X10*3/uL (1.2-4.9); Mean Corpuscular HGB Conc 33.8 g/dl (31.0-36.0); Mean Corpuscular Hemoglobin 29.4 pg (27.0-33.0); Mean Corpuscular Volume 86.7 fL (80.0-98.0); NRBC Abs Auto 0.000 X10*3/uL (0.0-0.012); NRBC Pct Auto 0.0 /100WBC (0.0-0.2); Platelet Count 305 X10*3/uL (160-400); Red Blood Count 5.28 X10*6/uL (4.60-5.80); White Blood Count 8.5 X10*3/uL (4.8-10.8)
[2024-12-21 13:58] LABS: INTERNATIONAL NORM RATIO 1.1 (0.9-1.1); Prothrombin Time 12.7 SEC (10.9-12.4)
--- NOTE | 2024-12-21 14:17 | PC.NURSE ---
report given to BRAULIO Anand pt to be transported to ED Overflow pending Medsurg bed assignment
--- NOTE | 2024-12-21 14:44 | PC.NURSE ---
Assumed care of this patient upon transfer from Main ED at this time, patient still needing knee immobilizer/crutches/ type & screen completed. Patient able to stand/pivot to bed. Alert and oriented, no issues at this time.
--- NOTE | 2024-12-21 14:47 | PC.NURSE ---
Upon reviewing lab work, patient's CMP from 1344 still had not resulted, called lab, tech stating labs were a recollect d/t hemolized, they currently have recollect running now. GABRIELA Higginbotham to draw patient's type & screen at this time, will also draw an additional green gel for hold tube.
[2024-12-21 14:54] LABS: Alanine Aminotransferase 28 U/L (0-40); Albumin Level 4.4 g/dL (3.5-5.0); Alkaline Phosphatase 62 U/L (39-117); Anion Gap 12 (12-20); Aspartate Amino Transferase 29 U/L (5-37); Blood Urea Nitrogen 11 mg/dL (9-16); Calcium 9.1 mg/dL (8.4-10.2); Carbon Dioxide 26 mmol/L (22-29); Chloride 107 mmol/L (96-108); Creatinine Clr Calc Pharmacy 107.7; Estimated Glomerular Filt Rate > 60; Potassium 3.7 mmol/L (3.3-5.1); Sodium 141 mmol/L (135-145); Total Protein 7.4 g/dL (6.5-8.0)
--- NOTE | 2024-12-21 15:16 | PC.NURSE ---
Immobilizer applied, crutches assembled, patient's knee elevated per orders.
[2024-12-21 15:23] VITALS: BP 155/109; PULSE 64; RESP 16; TEMP 36.4; O2SAT 97
--- NOTE | 2024-12-21 16:28 | PHA.MEDREC ---
Addendum entered by Etta Maloney RPh 12/21/24 16:50: Reviewed by [facility] Original Note: Pharmacy Consult ? Medication Reconciliation Pharmacy has completed the medication reconciliation. Patient states he only takes a daily multivitamin.
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
--- NOTE | 2024-12-21 20:22 | PC.NURSE ---
Patient's approached nursing station w/ request - patient was supposed to be leaving for a cruise vacation in 2 days, will need attending physican statement paperwork filled out in order to be able to qualify for any refund. Paperwork taken from , will be in chart for ortho to fill out in the am. Information will be passed along to next shift RN as well.
[2024-12-21 20:53] VITALS: BP 129/88; PULSE 57; RESP 16; TEMP 36.4; O2SAT 98
[2024-12-21] MEDS: 0.9 % Sodium Chloride Flush 3 ML SYRINGE IVFLUSH (21:00)
[2024-12-22] VITALS (10 sets, daily range): BP systolic 118–152; BP diastolic 71–97; PULSE 53–76; RESP 14–18; TEMP 36–36.7; O2SAT 96–99; BMI 29.1
[2024-12-22 05:29] LABS: MANUAL DIFF FLAG NO
[2024-12-22 05:31] LABS: Hematocrit 42.3 % (42.0-52.0); Hemoglobin 14.3 g/dl (14.0-18.0); Imm Gran Abs Auto 0.03 X10*3/uL (0.00-0.03); Imm Gran Pct Auto 0.4 % (0.0-0.4); Lymphocytes Absolute Auto 2.4 X10*3/uL (1.2-4.9); Mean Corpuscular HGB Conc 33.8 g/dl (31.0-36.0); Mean Corpuscular Hemoglobin 28.9 pg (27.0-33.0); Mean Corpuscular Volume 85.6 fL (80.0-98.0); NRBC Abs Auto 0.000 X10*3/uL (0.0-0.012); NRBC Pct Auto 0.0 /100WBC (0.0-0.2); Platelet Count 299 X10*3/uL (160-400); Red Blood Count 4.94 X10*6/uL (4.60-5.80); White Blood Count 6.9 X10*3/uL (4.8-10.8)
[2024-12-22 05:50] LABS: Alanine Aminotransferase 26 U/L (0-40); Albumin Level 4.0 g/dL (3.5-5.0); Alkaline Phosphatase 54 U/L (39-117); Anion Gap 11 (12-20); Aspartate Amino Transferase 25 U/L (5-37); Blood Urea Nitrogen 14 mg/dL (9-16); Calcium 8.5 mg/dL (8.4-10.2); Carbon Dioxide 24 mmol/L (22-29); Chloride 108 mmol/L (96-108); Creatinine Clr Calc Pharmacy 114.8; Estimated Glomerular Filt Rate > 60; Potassium 3.9 mmol/L (3.3-5.1); Sodium 139 mmol/L (135-145); Total Protein 6.7 g/dL (6.5-8.0)
--- NOTE | 2024-12-22 06:43 | PC.NURSE ---
report given to SSS states need to keep npo for rest of day, plan for surgery possibly afternoon. pt denies pain at this time and npo since before midnight.
[2024-12-22] MEDS: 0.9 % Sodium Chloride Flush 3 ML SYRINGE IVFLUSH ×2 (08:09→20:42)
--- NOTE | 2024-12-22 10:14 | MHC.CM.PN ---
CM MET WITH PT AT BEDSIDE. PT LIVES WITH SPOUSE AND SON, IS FUNCTIONALLY INDEP AND EMPLOYED F/T. NO SERVICES OR DME. +H CP PCP DR. ARCE AT [facility]. DP: HOME, NO SERVICES VS HOME WITH P.T. SERVICES? PT'S SPOUSE WILL TRANSPORT. CM WILL CONTINUE TO FOLLOW FOR ANY CHANGE TO DC PLAN/NEEDS.
[2024-12-22] MEDS: oxyCODONE HCl Immed Release 5 MG TABLET PO (10:41)
--- NOTE | 2024-12-22 14:15 | MHC.SHP ---
Pre-Procedural Eval Section A - 24 Hr Update-Section A only Date of Service: 12/22/24 The patient is an INPATIENT: No Changes since office visit: No Cold of Flu in the past 2 weeks, No New Medical Problems, No Changes in Medication and No Patient answered all questions The patient has been examined within 24 hours of the surgical procedure. The History & Physical has been completed within 30 days and I have reviewed it.: Yes Section B - Complete if H&P > 30 days Chief Complaint: R quad tendon Rupture Allergies: Allergies Allergy/AdvReac Type Severity Reaction Status Date / Time No Known Allergies Allergy Verified 12/21/24 04:07 Plan I have reviewed the history and physical and performed a pertinent physical examination on my patient. No changes have occurred unless specified. Time Spent With Patient Time: Total time managing care of this patient today ____ minutes.
--- NOTE | 2024-12-22 15:22 | PC.NURSE ---
report given to lane supervisor lead burning at this time.
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
--- NOTE | 2024-12-22 17:29 | P.BOP_ITS ---
Brief Operative Note Date of Service: 12/22/24 Pre-op diagnosis: right quad tendon rupture Post-op diagnosis: same Procedure: Right quad tendon repair Implants: [employer] 4.75 double loaded helacoil x 2; microraptor x 2; Regeneten bioinductive patch, large Surgeon: Naun Powers MD Anesthesia: GLMA and regional Was an Commission Sales Associate used for this Procedure?: Yes Commission Sales Associate: Abelardo Keller Estimated blood loss (mL): 100 IV fluids (mL): 1,000 Pathology: none sent Condition: stable Disposition: PACU
--- NOTE | 2024-12-22 17:57 | P.DS_ITS ---
DS: Providers Provider Date of Service: 12/22/24 <TRUNG Madison Last Filed: 12/22/24 17:59> Date of admission: 12/21/24 13:31 <TRUNG Madison Last Filed: 12/22/24 17:59> Date of discharge: 12/23/24 <TRUNG Madison Last Filed: 12/22/24 17:59> Primary care physician: Emma Kennedy MD <TRUNG Madison Last Filed: 12/22/24 17:59> Consults: 12/21/24 13:31 Consult to Hospitalist Routine Comment: Consulting Provider: [facility] [place] [facility] Reason For Exam: Operative clearance, med management <TRUNG Madison Last Filed: 12/22/24 17:59> DS: Diagnosis Discharge Diagnosis (1) Rupture of right quadriceps tendon: Status: Acute <TRUNG Madison Last Filed: 12/22/24 17:59> DS: Summary Hospital Course Hospital Course: The patient underwent a successful Right quad tendon repair 12/22/[address] Powers, was transferred to PACU and then to the floor to recover. During their stay, their vitals were stable, afebrile at 97.4. Labs were unremarkable, H/H 14.2/41.6. POD 1 he received Physical Therapy services. Physical therapy should include gait training. Brace to be worn at all times locked in extension. No bending the knee. wbat with crutches and brace . Prior to discharge, his dressing was clean dry and intact, new Aquacel dressing applied. The Aquacel dressing should remain intact and dry at all times. Any concerns with the dressing, please contact orthopedic office. No showering. The plan is to be discharged home <TRUNG Madison Last Filed: 12/22/24 17:59> Time Attestation Discharge Coordination Time (in mins): 30 <TRUNG Jiang Last Filed: 12/23/24 10:46> Quality: Safe Use of Opioids Does Pt have an Active Cancer Diagnosis on the Problem List?: No <Estella Beet, PA-C - Last Filed: 12/23/24 10:46> Quality: Stroke Does the patient have a stroke diagnosis?: No <Estella Mario TRUNG Montoya - Last Filed: 12/23/24 10:46> Physical Exam Vital Signs: Vital Signs: Last Vital Signs Temp 97.7 F 12/22/24 17:42 Pulse 67 12/22/24 17:52 Resp 16 12/22/24 17:52 BP 126/80 12/22/24 17:52 Pulse Ox 97 12/22/24 17:52 O2 Del Method Room Air 12/22/24 17:52 O2 Flow Rate 6 12/22/24 17:42 BMI result Body Mass Index 29.1 <Abelardo Keller PA-C - Last Filed: 12/22/24 17:59> Const: General: cooperative, healthy appearing and no acute distress <SHIRA JiangC - Last Filed: 12/23/24 10:46> Resp: Effort & Inspection: normal respiratory effort and able to speak in complete sentences <SHIRA JiangC - Last Filed: 12/23/24 10:46> Cardio: Rate: regular rate <Estella Montoya PA-C - Last Filed: 12/23/24 10:46> Peripheral pulses: Peripheral pulses 2+ throughout <SHIRA JiangC - Last Filed: 12/23/24 10:46> GI: Palpation (GI): Soft to palpation <Estella Montoya PA-C - Last Filed: 12/23/24 10:46> Skin: Lesions: no lesions <SHIRA JiangC - Last Filed: 12/23/24 10:46> Rashes: no rashes <Estella Montoya PA-C - Last Filed: 12/23/24 10:46> Extrem: Other: right knee dressing is c/d/i. Locked in extension in the ACL brace. Able to dorsi/plantar flex. Calf is supple and nontender. Sensation intact. Pedal pulse intact. <Estella Montoya PA-C - Last Filed: 12/23/24 10:46> DS: Data Data Completed and Pending Labs on day of discharge: Laboratory Results - last 24 hr 12/22/24 04:19 WBC 6.9 RBC 4.94 Hgb 14.3 Hct 42.3 MCV 85.6 MCH 28.9 MCHC 33.8 RDW 11.7 Plt Count 299 MPV 9.6 Immature Gran % (Auto) 0.4 Neut % (Auto) 48.7 Lymph % (Auto) 35.4 Coos % (Auto) 12.9 H Eos % (Auto) 2.3 Baso % (Auto) 0.3 Lymph # (Auto) 2.4 Coos # (Auto) 0.9 Eos # (Auto) 0.2 Baso # (Auto) 0.0 Abs Immat Gran (auto) 0.03 Absolute Neuts (auto) 3.4 Absolute Nucleated RBC 0.000 Nucleated RBC % (auto) 0.0 Sodium 139 Potassium 3.9 Chloride 108 Carbon Dioxide 24 Anion Gap 11 L BUN 14 Creatinine 0.92 Estim Creat Clear Calc 114.8 Estimated GFR > 60 Random Glucose 94 Calcium 8.5 D Total Bilirubin 1.2 H AST 25 ALT 26 Alkaline Phosphatase 54 Total Protein 6.7 Albumin 4.0 <Abelardo Keller PA-C - Last Filed: 12/22/24 17:59> Discharge Plan Discharge Anticipated Discharge Date/Time: 12/23/24 10:43 <Abelardo Keller PA-C - Last Filed: 12/22/24 17:59> Patient Disposition: Home, Self-Care <Abelardo Keller PA-C - Last Filed: 12/22/24 17:59> Discharge Diagnosis: s/p rt quad tendon repair <Abelardo Keller PA-C - Last Filed: 12/22/24 17:59> s/p rt quad tendon repair <Estella Montoya PA-C - Last Filed: 12/23/24 10:46> Referrals: Abelardo Keller PA-C [Physician Site Specialist, Orthopedics] - 01/06/25 11:30 am <Abelardo Keller PA-C - Last Filed: 12/22/24 17:59> Discharge Medications: New acetaminophen 325 mg Tablet 650 mg PO Q6H PRN (Reason: Pain, Mild 1-3,Fever,Headache) 30 Days Qty: 240 0RF oxycodone 5 mg Tablet 5 mg PO Q4H PRN (Reason: Pain, Moderate(Pain Scale 4-6)) 7 Days Qty: 42 0RF Rx Instructions: Partial Fill upon patient request. Continued Men's Daily Multivitamin 8 mg iron- 200 mcg-600 mcg Tablet 1 tab PO DAILY <TRUNG Madison Last Filed: 12/22/24 17:59> Discharge Orders: Discharge Order (Routine); Ordered 12/23/24 Ordered By: Estella Montoya <TRUNG Madison Last Filed: 12/22/24 17:59> Diet: Regular diet <TRUNG Madison Last Filed: 12/22/24 17:59> Regular diet <TRUNG Jiang Last Filed: 12/23/24 10:46> Activity on Discharge: Use cane or walker <TRUNG Madison Last Filed: 12/22/24 17:59> Use cane or walker <TRUNG Jiang Last Filed: 12/23/24 10:46> Stand Alone Forms: Patient Portal Discharge page <TRUNG Madison Last Filed: 12/22/24 17:59> Print Language: Welsh <TRUNG Madison Last Filed: 12/22/24 17:59> Care Plan Goals: Restore function of RLE <TRUNG Madison Last Filed: 12/22/24 17:59> Health Concerns: none <TRUNG Madison Last Filed: 12/22/24 17:59> Plan of Treatment: * WBAT with brace locked in extension at all times * DO NOT BEND THE KNEE * Keep dressing clean, dry and intact * Perform Ankle pumps for leg circulation 4x a day * Elevate leg above the level of the heart on 3 pillows * Any questions or concerns please call the office MICHELLE * Follow up with Orthopedics in 2 weeks. <Abelardo Keller PA-C - Last Filed: 12/22/24 17:59> Assessment: as above <Abelardo Keller PA-C - Last Filed: 12/22/24 17:59>
[2024-12-22] MEDS: oxyCODONE HCl ER 10 MG TAB.ER.12H PO (20:41)
[2024-12-23 03:21] VITALS: BP 123/79; PULSE 75; RESP 18; TEMP 36.3; O2SAT 94
[2024-12-23 06:35] LABS: MANUAL DIFF FLAG NO
[2024-12-23] MEDS: oxyCODONE HCl ER 10 MG TAB.ER.12H PO (06:58)
[2024-12-23] MEDS: oxyCODONE HCl Immed Release 5 MG TABLET PO (06:58)
[2024-12-23] MEDS: 0.9 % Sodium Chloride Flush 3 ML SYRINGE IVFLUSH (07:00)
[2024-12-23 07:07] LABS: Hematocrit 41.6 % (42.0-52.0); Hemoglobin 14.2 g/dl (14.0-18.0); Imm Gran Abs Auto 0.05 X10*3/uL (0.00-0.03); Imm Gran Pct Auto 0.4 % (0.0-0.4); Lymphocytes Absolute Auto 1.8 X10*3/uL (1.2-4.9); Mean Corpuscular HGB Conc 34.1 g/dl (31.0-36.0); Mean Corpuscular Hemoglobin 29.4 pg (27.0-33.0); Mean Corpuscular Volume 86.1 fL (80.0-98.0); NRBC Abs Auto 0.000 X10*3/uL (0.0-0.012); NRBC Pct Auto 0.0 /100WBC (0.0-0.2); Platelet Count 328 X10*3/uL (160-400); Red Blood Count 4.83 X10*6/uL (4.60-5.80); White Blood Count 13.0 X10*3/uL (4.8-10.8)
[2024-12-23 07:29] VITALS: BP 130/80; PULSE 62; RESP 16; TEMP 36.3; O2SAT 96
--- NOTE | 2024-12-23 07:43 | PM.PNORT ---
Subjective Subjective Date of Service: 12/23/24 Interval history: POD1 s/p rt quad tendobn repair Patient is resting in bed comfortably No overnight events Pain is managed No additional complaints Physical Exam Vital Signs: Vital Signs: Last Vital Signs Temp 97.3 F 12/23/24 07:29 Pulse 62 12/23/24 07:29 Resp 16 12/23/24 07:29 BP 130/80 12/23/24 07:29 Pulse Ox 96 12/23/24 07:29 O2 Del Method Room Air 12/23/24 07:29 O2 Flow Rate 6 12/22/24 17:42 BMI result Body Mass Index 29.1 Const: General: cooperative, healthy appearing and no acute distress Resp: Effort & Inspection: normal respiratory effort and able to speak in complete sentences Cardio: Rate: regular rate Peripheral pulses: Peripheral pulses 2+ throughout GI: Palpation (GI): Soft to palpation Skin: Lesions: no lesions Rashes: no rashes Extrem: Other: right knee dressing is c/d/i. Locked in extension in the ACL brace. Able to dorsi/plantar flex. Calf is supple and nontender. Sensation intact. Pedal pulse intact. Procedures Date of Service Date of Service: 12/23/24 Progress Note: A&P Assessment and plan (1) Rupture of right quadriceps tendon: Status: Acute Plan Continue pain mgmnt begin PT for rt quad tendon repair - WBAT in ACL brace locked in extension Dispo planning-Pending PT eval, pain mgmnt Time Spent With Patient Time: Total time managing care of this patient today ____ minutes. Quality Stroke Does the patient have a stroke diagnosis?: No VTE Prior VTE?: No VTE Risk Level:: Medical - moderate - high VTE Device Contraindication: N/A - Device Ordered VTE Drug Contraindication: N/A - Med Ordered
--- NOTE | 2024-12-23 08:38 | HO.POSTANES ---
Post Anesthesia Evaluation Post Anesthesia Evaluation Date of Service: 12/23/24 Vital Signs: Vital Signs Temp Pulse Resp BP Pulse Ox O2 Del Method 12/23/24 07:29 97.3 F 62 16 130/80 96 Room Air 12/23/24 03:21 97.4 F 75 18 123/79 94 Room Air Anesthesia: General Mental Status: Awake Pain Control: Satisfactory Nausea/Vomiting: None Hydration: Adequate Anesthesia-Related Issues: No Anes. Related Issues
--- NOTE | 2024-12-23 11:01 | MHC.CM.PN ---
DP: PT HAS BEEN MEDICALLY CLEARED FOR DC HOME WITH FAMILY SUPPORT. PT'S SPOUSE WILL TRANSPORT.
[2024-12-23 12:00] VITALS: BP 147/87; PULSE 76; RESP 12; TEMP 36.1; O2SAT 99
--- NOTE | 2024-12-28 07:53 | P.OP_ITS ---
Operative Note Operative Note Date of Service: 12/22/24 Narrative: Date of Service: 12/22/24 Pre-op diagnosis: right quad tendon rupture Post-op diagnosis: same Procedure: Right quad tendon repair Implants: Holloway and Nephew 4.75 double loaded helacoil x 2; microraptor x 2; Regeneten bi oinductive patch, large Surgeon: Naun Powers MD Anesthesia: GLMA and regional Was an Visual Merchandising Assistant used for this Procedure?: Yes Visual Merchandising Assistant: Abelrado Keller Estimated blood loss (mL): 100 IV fluids (mL): 1,000 Pathology: none sent Condition: stable Disposition: PACU Patient was brought to the operating room and placed supine on the surgical table. She was prepped and draped in standard sterile fashion and a time out was called to identify proper site, proper procedure and IV antibiotics per weight were administered. I began by making a ~6 cm incision over the patella and distal quad tendon. I dissected down to the fascia overlying the quadriceps tendon. I incised through this and there was a complete quadriceps tear with no significant retraction. The wound was irrigated and the ends of the quadriceps was debrided and cleaned and the attachment site on the patella was debrided with a rongeur down to bleeding bone. I then placed two 4.75 double loaded Healicoil anchors into the patella. One fiber tape limb from each anchor was then whip stitched up and back through each side of the quadriceps tendon using Condon locking stitch. One fiber wire from each anchor was used to oversew the d istal end of the tendon. These limbs were then tied to their corresponding limb and re-approximated to the patellar insertion with the leg in hyper extension. The repair was anatomic. The FiberTape limbs were then extended to the distal patella in a cross bridge configuration and 2 micro raptor anchors were used to further stabilize these limbs. Given the extent of the tear I elected to place a large Regeneten bio inductive patch over the distal aspect of the quad tendon at the insertion site. The knee was taken through a range of motion and the repair was stable up to 100 degrees of flexion. The fascia was closed and the sub q was closed and the skin with tera. Sterile dressing were applied and the patient was placed in a locked brace in extension and extubated and brought to the recovery room in stable condition. There were no known complications.
== END 2024-12-23 13:37 | disposition home or self-care (01) | DRG 502 ==
LOC: HO.ED 13:57 → HO.EDOVER 13:58 → HO.S3 12-22 07:25
PROVIDERS: Nurse Practitioner Family; Orthopaedic Surgery; Physician Assistant Medical; Emergency Provider Emergency Medicine Emergency Medical Services; PCP Internal Medicine
PROC: 0LQL0ZZ Repair Right Upper Leg Tendon, Open Approach (ICD-10-PCS; CPT 27385; principal; 2024-12-22 16:10)
DX: S76.111A Strain of right quadriceps muscle, fascia and tendon, initial encounter (principal); W16.512A Jumping or diving into swimming pool striking water surface causing other injury, initial encounter; Y93.11 Activity, swimming; I10 Essential (primary) hypertension
CPT/HCPCS: 27385; 36415; 73560; 73700; 80053; 85025; 85610; 86850; 86900; 86901; 93005; 97161; 97165; 99221; 99285; C1713; C1763; J0690; J1100; J1171; J2003; J2250; J2405; J2704; J2795

== ENCOUNTER → 2024-12-21 04:18 | Outpatient (BNV) | payer OTHER, SELFPAY | PROVIDERS: Emergency Provider Emergency Medicine Emergency Medical Services; PCP Internal Medicine | DX: S76.111A Strain of right quadriceps muscle, fascia and tendon, initial encounter (principal) | CPT/HCPCS: 99232 ==

== ENCOUNTER → 2024-12-21 13:25 | Outpatient (BNV) | payer OTHER, SELFPAY | PROVIDERS: Emergency Provider Emergency Medicine Emergency Medical Services; PCP Internal Medicine; Visit Provider Internal Medicine | DX: R00.1 Bradycardia, unspecified (principal) | CPT/HCPCS: 93010 ==

== ENCOUNTER → 2024-12-21 13:31 | Outpatient (BNV) | payer OTHER, SELFPAY | PROVIDERS: Emergency Provider Emergency Medicine Emergency Medical Services; PCP Internal Medicine; Visit Provider Nurse Practitioner Family | DX: I10 Essential (primary) hypertension (principal) | CPT/HCPCS: 99222 ==

== ENCOUNTER 2025-01-06 11:22 | Outpatient (AMB) | payer OTHER, SELFPAY ==
--- NOTE | 2025-01-06 11:32 | MHC.OFFVIS ---
Intake Visit Reasons: PO-s/p right quad tendon repair 12/22/24 NE Intake Note: Favio is a 49 year old male who presents today post operatively after undergoing a right quad tendon repair, DOS 12/22/[address] Powers. Patient reports he is doing okay, states not really pain just having discomfort and soreness. Allergies No Known Allergies Allergy (Verified 01/06/25 11:32) Medication List - Last Reconciled 01/06/25 by Abelardo Keller PA-C acetaminophen 650 mg (2 x 325 mg) PO Q6H PRN 30 days [Folding Front Wheeled walker Duration: 99 days] mv,Ca,mcm-zlke-YO-lycopene 8 mg iron- 200 mcg-600 mcg (Men's Daily Multivitamin) 1 tab PO DAILY HPI HPI PO-s/p right quad tendon repair 12/22/24 NE: Details: 49-year-old male returns to the office today status post 2 week right quad tendon repair on 12/22/[address] Powers. He is ambulating with his brace locked in extension with crutches. He has no concerns today. [facility] Medical History Burn Essential hypertension Surgical History (Reviewed 01/06/25 @ 11:37 by Makenzie Elliott COUNTS INCLUDE 234 BEDS AT THE [facility]) History of tooth extraction Family History Mother Breast cancer Mental health disorder Father Cancer Mental health disorder Social History Household Members: Spouse and Children Housing: House Do you presently have visiting nurse or other home services: No Unable to assess alcohol history related to: Unknown Alcohol intake: current Alcohol intake frequency: holidays/special occasions only Alcohol type: beer Patient Tobacco Use Status: Former Tobacco user e-Cigarette/Vaping Use: Never Used Second Hand Smoke Exposure: No Advance Directives Date on File: 12/22/24 service: No Current occupational status: employed Current occupational exposures/hazards: No Cognitive needs: No Hearing needs: No Vision needs: Yes Review of Systems Const All systems reviewed & are unremarkable except as noted in HPI and below Physical Exam Extrem Other: Right knee incision is clean dry and intact no erythema, mild swelling. He is able to fully extend the leg. Calf is supple and nontender neurovascularly intact. Assessment & Plan Assessment & Plan (1) Rupture of right quadriceps tendon: Code(s): S76.111A - Strain of right quadriceps muscle, fascia and tendon, initial encounter Category: Medical Plan: Medhat removed today Steri-Strips applied. He will continue with the brace locked in extension while ambulating. He can progress to weight-bearing as tolerated with crutches. An order for physical therapy has been placed and he was given the information to contact the therapy department to make an appointment. He can weightbear as tolerated with the brace locked in extension. Physical therapy will begin opening the brace 15 degrees each week. I stressed the importance of gentle range of motion to ensure quality healing. He will remain out of work for up to 3 months postop and see me back in 6 weeks sooner if needed. Orders: Orders PT Evaluation and Treatment Today S76.111A - Strain of right quadriceps muscle, fascia and tendon, initial encounter Coding Level of Care Code Global (95156) Diagnoses Rupture of right quadriceps tendon S76.111A
== END 2025-01-06 12:06 | disposition home or self-care (01) ==
LOC: HO.HOS 11:23
PROVIDERS: PCP Internal Medicine; Visit Provider Physician Assistant
DX: S76.111A Strain of right quadriceps muscle, fascia and tendon, initial encounter (principal)
CPT/HCPCS: 99024

== ENCOUNTER 2025-02-05 08:44 | Outpatient (AMB) | payer OTHER, SELFPAY ==
--- NOTE | 2025-02-05 09:09 | A.OFFVIS_ITS ---
Intake Visit Reasons: fu Rt quad tendon repair 12/22/24 NE Intake Note: Favio is a 49 year old man who presents today for a post operative visit status post undergoing a right quad tendon repair, DOS: 12/22/[address] Naun Powers. At his last visit he was referred to physical therapy, educated he could weight bear as tolerated with his brace locked in extension and physical therapy will begin opening the brace 15 degrees each week. Today patient reports that he is doing well, he has no pain. He continues working with PT which causes some swelling and tension after sessions. Allergies No Known Allergies Allergy (Verified 02/05/25 09:11) Medication List - Last Reconciled 02/05/25 by Abelardo Keller PA-C acetaminophen 650 mg (2 x 325 mg) PO Q6H PRN 30 days [Folding Front Wheeled walker Duration: 99 days] mv,Ca,zes-lblx-BA-lycopene 8 mg iron- 200 mcg-600 mcg (Men's Daily Multivitamin) 1 tab PO DAILY HPI HPI fu Rt quad tendon repair 12/22/24 NE: Details: 50-year-old gentleman returns to the office today approximately 6 weeks status post right quad tendon repair on 12/22/[address] Powers. Continues to work with physical therapy and is working on range of motion. Currently getting flexion to 80 degrees. He is using the brace at all times when ambulating. No concerns today. [facility] Medical History Burn Essential hypertension Surgical History History of tooth extraction Family History Mother Breast cancer Mental health disorder Father Cancer Mental health disorder Social History Household Members: Spouse and Children Housing: House Do you presently have visiting nurse or other home services: No Unable to assess alcohol history related to: Unknown Alcohol intake: current Alcohol intake frequency: holidays/special occasions only Alcohol type: beer Patient Tobacco Use Status: Former Tobacco user e-Cigarette/Vaping Use: Never Used Second Hand Smoke Exposure: No Advance Directives Date on File: 12/22/24 service: No Current occupational status: employed Current occupational exposures/hazards: No Cognitive needs: No Hearing needs: No Vision needs: Yes Review of Systems Const All systems reviewed & are unremarkable except as noted in HPI and below Physical Exam Extrem Other: Right knee incision is well healed. He has full extension and can flex to approximately 80 degrees. He is able to perform straight leg raise. Calf is supple and nontender neurovascularly intact. Assessment & Plan Assessment & Plan (1) Rupture of right quadriceps tendon: Code(s): S76.111A - Strain of right quadriceps muscle, fascia and tendon, initial encounter Category: Medical Plan: Patient will continue working with physical therapy to obtain end range of motion. Continue with isometric quad exercises. He will continue with the brace until quad function is full which is another 6-8 weeks. He will remain out of work until we see him back 6-8 weeks follow up. Coding Level of Care Code Global (92596) Diagnoses Rupture of right quadriceps tendon S76.111A
== END 2025-02-05 09:29 | disposition home or self-care (01) ==
LOC: HO.HOS 08:45
PROVIDERS: PCP Internal Medicine; Visit Provider Physician Assistant
DX: S76.111A Strain of right quadriceps muscle, fascia and tendon, initial encounter (principal)
CPT/HCPCS: 99024

== ENCOUNTER 2025-03-15 07:59 | Outpatient (AMB) | payer OTHER, SELFPAY ==
--- OUTSIDE RECORDS SUMMARY | 2025-03-15 08:03 | XMS_ITS | Data Portability ---
Author Organization [facility] [address] Address [address] [place] [address] Assessment No assessment recorded. Plan of Treatment Reminders Order Date Submit Date Provider Last Modified By Organization Details Last Modified Time Details Appointments None recorded. Lab None recorded. Referral None recorded. Procedures None recorded. Surgeries None recorded. Imaging None recorded. Medication Orders ofloxacin 0.3 % eye drops 2023 024 [id number], [address], [place], [id number], 4 11:34:18 Patient TargetsNo targets recorded. Patient InstructionsNo instructions recorded. Reason for Referral None Reported. Problems No Known Problems Procedures Surgical History Date Name Laterality Status Provider Name and Address Organization Details Recorded Time 4 OC-DOT PHYSICAL completed Tiana Smith ID - [facility] 2024 08:39:07 3 OC-UDS Send Out Template DOT completed BISHNU STEVENSON [facility] 10/23/2022 14:38:31 Imaging Results [...] blood by Pulse oximetry Heart rate Systolic And Diastolic Provider Name and Address Organization Details Last Updated DateTime 4 0 045387. 28 g 28.1 kg/m2 190.5 cm 97 [degF] 14 /min 97 % 97 % 64 /min 142/94 mm[Hg] Padma Eder PA - [facility] 11:28:41 Social History Question Answer Notes LastModified by Wordeo Details LastModified Time Tobacco Smoking Status Never Smoker Padma Eder alva PA - [facility] 04/04/2024 11:26:45 Have You Had A Flu Shot This Season? Yes Information not available 04/04/2024 Have You Recently Traveled Abroad? No Information not available 04/04/2024 Sex: Unknown Functional Status Question Answer Note LastModified by Wordeo Details LastModified Time Do you use any [...] Diagnosis SNOMED-CT Code Diagnosis ICD10 Code Diagnosis IMO Codes Diagnosis Note [id number] [address] [address] [place] [address] 03/03/2017 15:25:47 03/03/2017 16:09:08 [id number] [address] [address] [facility] [place] [address] 03/04/2017 15:04:42 03/04/2017 16:53:54 [id number] [address] [facility] [place] [address] 04/18/2015 09:10:20 04/18/2015 10:00:05 [id number] Duke Anguiano [employer] 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 Denies any RX. Refer to scanned DOT physical exam forms and DOT certificat e for exam findings. Physical examination 588 0005 Z02.4 [id number] CECILIA Hagan [address] [place] [address] 04/04/2024 11:21:15 04/04/2024 11:36:01 Acute conjunctivitis of right eye [id number] H10.31 Based on your presentati on and [...] Borrego Member ID Guarantor Name 04/04/2024 1 [facility] [id number] Favio Rony [id number] Favio Rony 04/04/2024 PAY AT TOS Favio Rony OTHER OTHER Favio Rony 04/04/2024 1 MK (PPO) [id number] Favio L Rony [id number] Favio Rony 04/04/2024 OC-ESCREEN Favio Rony [id number] Favio Rony 04/04/2024 OC-PAY AT TIME OF SERVICE 2022 Favio Rony OTHER OTHER Favio Rony Notes Date Note Type Note Provider Name and Address Organization Details Recorded Time 04/04/2024 text/html 49 y/o male with 1 week of R eye redness and discharge, discomfort, but no real pain, no blurry vision CECILIA Hagan [address] [place], [address], PA - [facility] 04/04/2024 11:40:13
--- NOTE | 2025-03-15 08:15 | MHC.PC.OV ---
Vital Signs 03/15/25 08:16 Height 6 ft 3 in Weight 221 lb 6 oz BMI 27.7 BP 110/70 Blood Pressure Location Lt brachial Position Sitting Pulse 63 Pulse Source Pulse Oximeter Temp 97.1 F Temp Source Temporal Artery Scan Pulse Oximetry (%) 97 Oxygen Delivery Method Room Air Intake Visit Reasons: annual exam Intake Note: Patient is here today for a physical. 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 He has no known drug allergies and takes Tylenol as needed and multivitamins. His past surgical history includes a quadriceps surgery and tooth extractions. He is approximately 11 weeks postoperative from his quad surgery and reports that physical therapy is going smoothly, although he finds the process difficult. He has an upcoming follow-up appointment with his knee doctor on the and a parts department manager on the . Both of his parents are ; his mother had a history of breast cancer and his father had a history of cancer. There is no family history of colon cancer. He is a former smoker and consumes beer on holidays and special occasions. Regarding health maintenance, the patient has never had a colonoscopy and is up to date with his Tdap vaccine. [facility] Medical History Burn Essential hypertension Surgical History History of knee surgery History of tooth extraction Family History Mother Breast cancer Mental health disorder Father Cancer Mental health disorder Social History Household Members: Spouse and Children Housing: House Do you presently have visiting nurse or other home services: No Alcohol intake: current Alcohol intake frequency: holidays/special occasions only Alcohol type: beer Patient Tobacco Use Status: Former Tobacco user e-Cigarette/Vaping Use: Never Used Second Hand Smoke Exposure: Yes Advance Directives Date on File: 12/22/24 service: No Current occupational status: employed Current occupational exposures/hazards: No Cognitive needs: No Hearing needs: No Vision needs: Yes Questionnaire Thrive Questionnaire Date Thrive assessed: 11/16/24 I am a: Patient What is your living situation today?: I have a steady place to live Within the past 12 months, did the food you bought not last and you didn't have the money to get more?: I choose not to answer this question Within the past 12 months, did you worry whether your food would run out before you got money to buy more?: I choose not to answer this question Do you have trouble paying for medicines?: No Do you have trouble getting transportation to medical appointments?: No Do you have trouble paying your heating and electricity bill?: No Do you have trouble taking care of your child, family member or friend?: No Do you have trouble with day-to-day activities such as bathing, preparing meals, shopping, managing finances, etc.?: No Are you currently unemployed and looking for a job?: Yes Are you interested in more education?: No Please select the resources that you would like help with: None Currently or been in a relationship where the following occur: I choose not to answer THRIVE Score: 0 AUDIT C Alcohol Use Questionnaire (AUDIT-C) 2. How many drinks containing alcohol do you have on a typical day when you are drinking?: 1 or 2 3. How often do you have six or more drinks on one occasion?: Never Total Score: 0 RENETTA-7 AMB Questionnaire RENETTA-7 Date RENETTA - 7 assessed: 09/09/24 Source: Developed by Drs. Horacio Qiu, Marilee Baez, Mark Foreman and colleagues, with an educational evelyn from [employer] Review of Systems Const All systems reviewed & are unremarkable except as noted in HPI and below Card Denies chest pain at rest, Denies chest pain with activity, Denies edema, Denies irregular heart rhythm, Denies claudication, Denies dyspnea, Denies dyspnea on exertion, Denies orthopnea, Denies paroxysmal nocturnal dyspnea and Denies slow heart rate Resp Denies cough, Denies dyspnea and Denies dyspnea on exertion GI Denies abdominal pain, Denies change in bowel habits, Denies excessive flatus, Denies nausea and Denies vomiting Denies urinary hesitancy, Denies urinary incontinence and Denies urinary urgency Physical exam (Primary Care) Vital Signs: Last Vital Signs Temp 97.1 F 03/15/25 08:16 Pulse 63 03/15/25 08:16 BP 110/70 03/15/25 08:16 Pulse Ox 97 03/15/25 08:16 Oxygen Delivery Method Room Air 03/15/25 08:16 BMI result Body Mass Index 27.7 Tobacco/Smoking Status: Tobacco use Status Tobacco use date assessed 03/15/25 03/15/25 08:20 Patient Tobacco Use Status Former Tobacco user 03/15/25 08:20 e-Cigarette/Vaping Use Never Used 03/15/25 08:20 Thrive Assessment: Date of Thrive Assessment Date Thrive assessed 11/16/24 03/15/25 08:20 Currently or been in a relationship where the following occur: I choose not to answer [facility] Head: Yes normal to inspection, Yes normocephalic and Yes atraumatic Ears: external ears normal Eyes General: appearance normal, both eyes and all related structures Eyelids: Yes eyelids normal Conjunctivae: conjunctivae normal Neck Neck: Yes normal visual inspection and Yes supple Resp Effort & Inspection: normal respiratory effort Auscultation: clear to auscultation bilaterally Cardio Jugular venous distension: no JVD Rate: regular rate Rhythm: regular rhythm Heart sounds: S1 normal heart sound present and S2 normal heart sound present GI Inspection: Yes normal to inspection Palpation (GI): Soft to palpation and nontender Auscultation: normal bowel sounds Skin General skin exam: no rashes or lesions noted Neuro General: no focal motor deficits Extrem General: Yes full ROM Psych Appearance: grossly normal Office Procedures Flu Questionnaire Does the patient have a severe egg allergy?: No Does the patient have severe life threatening allergies?: No Does the patient have a fever or illness today?: No Has the patient ever had Guillain-[place] Syndrome?: No Has the patient ever had any past reaction to a flu shot?: No Immunizations Fluarix [id number] (PF) 45 mcg (15 mcg x 3)/0.5 mL IM syringe Performing Provider: Emma Kennedy MD [facility] Administered by: RYLIE Bliss on 03/15/25 09:03 Dose Route Admin Location Dispensed Lot Number Expiration Date NDC 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 Encounter for general adult medical examination without abnormal findings Z00.00 The patient presented for a routine physical examination. A plan was made to perform blood work to check cholesterol, glucose, and kidney and liver function. The patient consented to and will receive an influenza vaccine today. Colon cancer screening via a Cologuard test has been ordered. The patient is 50 years old and has never had a colonoscopy. Given no family history of colon cancer or symptoms like hematochezia, an at-home Cologuard test was ordered. The patient was instructed to complete the test within one month of its arrival. Orders: Orders Influenza [id number] Immunization Today Z23 - Encounter for immunization Lipid Panel Today Z00.00 - Encounter for general adult medical examination without abnormal findings Comprehensive Pelsor. Panel Fast Today Z00.00 - Encounter for general adult medical examination without abnormal findings Referrals Cologuard Test Z12.11 - Encounter for screening for malignant neoplasm of colon, Z12.12 - Encounter for screening for malignant neoplasm of rectum
[2025-03-15 08:16] VITALS: BP 110/70; PULSE 63; TEMP 36.2; O2SAT 97; BMI 27.7
== END 2025-03-15 08:59 | disposition home or self-care (01) ==
LOC: HO.HMCH 08:00
PROVIDERS: PCP Internal Medicine; Visit Provider Internal Medicine
DX: Z23 Encounter for immunization (principal); Z00.00 Encounter for general adult medical examination without abnormal findings

== ENCOUNTER → 2025-03-15 07:59 | Outpatient (BNVA) | payer OTHER, SELFPAY | PROVIDERS: PCP Internal Medicine; Visit Provider Internal Medicine | DX: Z00.00 Encounter for general adult medical examination without abnormal findings (principal); Z23 Encounter for immunization | CPT/HCPCS: 90471; 90656 ==

== ENCOUNTER 2025-03-26 08:58 | Outpatient (AMB) | payer OTHER, SELFPAY ==
--- NOTE | 2025-03-26 09:06 | MHC.OFFVIS ---
Vital Signs 03/26/25 09:15 Height 6 ft 3 in Weight 221 lb BMI 27.6 Intake Visit Reasons: PO-Rt quad tendon repair 12/22/24 NE Intake Note: Favio is a 49 year old man who presents today for a post operative visit status post undergoing a right quad tendon repair, DOS: 12/22/[address] Naun Powers. At his last visit, patient was advise to continue working with physical therapy. He was given a work note to remain out of work until his follow up. Today patient reports that he is doing well, stating not much pain. Complaints of intermittent swelling with attending therapy and performing at home exercises as instructed. Allergies No Known Allergies Allergy (Verified 03/26/25 09:15) Medication List - Last Reconciled 03/26/25 by Abelardo Keller PA-C acetaminophen 650 mg (2 x 325 mg) PO Q6H PRN 30 days [Folding Front Wheeled walker Duration: 99 days] mv,Ca,lke-pwor-AF-lycopene 8 mg iron- 200 mcg-600 mcg (Men's Daily Multivitamin) 1 tab PO DAILY HPI HPI PO-Rt quad tendon repair 12/22/24 NE: Details: 50-year-old gentleman returns to the office today 3 months status post right quad tendon repair. He is continuing to work with physical therapy to increase his strength and work on proprioceptive training. He currently is out of work. He does feel like he is getting stronger and has no pain. He does experience occasional swelling. [facility] Medical History Burn Essential hypertension Surgical History History of knee surgery History of tooth extraction Family History Mother Breast cancer Mental health disorder Father Cancer Mental health disorder Social History Household Members: Spouse and Children Housing: House Do you presently have visiting nurse or other home services: No Unable to assess alcohol history related to: Unknown Alcohol intake: current Alcohol intake frequency: holidays/special occasions only Alcohol type: beer Patient Tobacco Use Status: Former Tobacco user e-Cigarette/Vaping Use: Never Used Second Hand Smoke Exposure: Yes Advance Directives Date on File: 12/22/24 service: No Current occupational status: employed Current occupational exposures/hazards: No Cognitive needs: No Hearing needs: No Vision needs: Yes Review of Systems Const All systems reviewed & are unremarkable except as noted in HPI and below Physical Exam Vital Signs: BMI result Body Mass Index 27.6 Extrem Other: Right knee incision is well healed. He has full extension and can flex to approximately 115 degrees. He is able to perform straight leg raise and has good quad activation. Calf is supple and nontender neurovascularly intact. Assessment & Plan Assessment & Plan (1) Rupture of right quadriceps tendon: Code(s): S76.111A - Strain of right quadriceps muscle, fascia and tendon, initial encounter Category: Medical Qualifiers: Encounter type: subsequent encounter Qualified Code(s): S76.111D - Strain of right quadriceps muscle, fascia and tendon, subsequent encounter Plan: The patient was transitioned to a playmaker knee brace to use once he returns to work for the next 2-4 weeks. He will return to work on 04/19/2025 light duty with restrictions including limiting climbing in and out of a truck and no lifting pushing pulling or carrying greater than 50 lb x 2 weeks then he will resume full duty. He will continue to work on home exercise program once he is discharged from physical therapy. If there is any questions or concerns going forward he will contact our office otherwise follow up as needed. Coding Level of Care Code Est Pt Level 3 (69619) Complex EM visit Add On G2211 Diagnoses Rupture of right quadriceps tendon, subsequent encounter S76.111D Encounter type: subsequent encounter
[2025-03-26 09:15] VITALS: BMI 27.6
--- OUTSIDE RECORDS SUMMARY | 2025-03-26 09:59 | XMS_ITS | Data Portability ---
Author Organization [facility] [address] Address [address] [place] [address] Assessment No assessment recorded. Plan of Treatment Reminders Order Date Submit Date Provider Last Modified By Organization Details Last Modified Time Details Appointments None recorded. Lab None recorded. Referral None recorded. Procedures None recorded. Surgeries None recorded. Imaging None recorded. Medication Orders ofloxacin 0.3 % eye drops 2023 024 [id number], [address], [place], [phone], 4 11:34:18 Patient TargetsNo targets recorded. Patient InstructionsNo instructions recorded. Reason for Referral None Reported. Problems No Known Problems Procedures Surgical History Date Name Laterality Status Provider Name and Address Organization Details Recorded Time 4 OC-DOT PHYSICAL completed Tiana Smith MD - [facility] 2024 08:39:07 3 OC-UDS Send Out Template DOT completed BISHNU STEVENSON [facility] 10/23/2022 14:38:31 Imaging Results None [...] Organization Details Last Updated DateTime 4 0 232753. 28 g 28.1 kg/m2 190.5 cm 97 [degF] 14 /min 97 % 97 % 64 /min 142/94 mm[Hg] Padma Eder PA - [facility] 11:28:41 Social History Question Answer Notes LastModified by [employer] Details LastModified Time Tobacco Smoking Status Never Smoker Padma Eder alva PA - [facility] 04/04/2024 11:26:45 Have You Had A Flu Shot This Season? Yes Information not available 04/04/2024 Have You Recently Traveled Abroad? No Information not available 04/04/2024 Sex: Unknown Functional Status Question Answer Note LastModified by [employer] Details LastModified Time Do you use any [...] ICD10 Code Diagnosis IMO Codes Diagnosis Note [id number] [address] [facility] [address] [place] [address] 03/03/2017 15:25:47 03/03/2017 16:09:08 [id number] [address] [address] [place] [address] 03/04/2017 15:04:42 03/04/2017 16:53:54 [id number] [address] [place] [address] 04/18/2015 09:10:20 04/18/2015 10:00:05 [id number] Duke Anguiano [employer] [address] [place] [address] 10/23/2022 14:20:04 10/23/2022 15:24:13 History and physical examination, occupation [id number] Z02.1 [id number] CECILIA Hagan [address] [address] [place] [address] 2024 08:02:22 2024 09:03:50 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 Denies any RX. Refer to scanned DOT physical exam forms and DOT certificat e for exam findings. Physical examination 588 0005 Z02.4 [id number] CECILIA Hagan [address] [place] [address] 04/04/2024 11:21:15 04/04/2024 11:36:01 Acute conjunctivitis of right eye [id number] 97149 H10.31 Based on your presentati on and [...] Borrego Member ID Guarantor Name 04/04/2024 1 [facility] [id number] Favio Rony [id number] Favio Rony 04/04/2024 PAY AT TOS Favio Rony OTHER OTHER Favio Rony 04/04/2024 1 MK (PPO) [id number] Favio L Rony [id number] Favio Rony 04/04/2024 OC-ESCREEN Favio Rony [id number] Favio Rony 04/04/2024 OC-PAY AT TIME OF SERVICE 2022 Favio Rony OTHER OTHER Favio Rony Notes Date Note Type Note Provider Name and Address Organization Details Recorded Time 04/04/2024 text/html 49 y/o male with 1 week of R eye redness and discharge, discomfort, but no real pain, no blurry vision CECILIA Hagan [address] [place], [address], PA - [facility] 04/04/2024 11:40:13
== END 2025-03-26 09:34 | disposition home or self-care (01) ==
LOC: HO.HOS 08:59
PROVIDERS: PCP Internal Medicine; Visit Provider Physician Assistant
DX: S76.111D Strain of right quadriceps muscle, fascia and tendon, subsequent encounter (principal)
CPT/HCPCS: 99213

== ENCOUNTER 2025-03-29 08:19 | Outpatient (AMB) | payer OTHER, SELFPAY ==
[2025-03-29 08:33] VITALS: BP 122/80; PULSE 76; BMI 27.6
--- NOTE | 2025-03-29 08:33 | A.OFFVIS_ITS ---
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 A recent EKG had shown nonspecific ST-T changes. Patient himself does not have any prior cardiac issues including coronary disease or myocardial infarction or cardiomyopathy. Unclear if he has hypertension or not. He states some blood pressure at home are in the 140s and clinic readings also seem highly variable. Today's blood pressure is completely normal. However, previous readings have been high. He is not on any blood pressure medications. In the past, he had reported some chest pains which are somewhat random. No clear patterns and can happen any time. However, he has not had this in several months now. Otherwise, unlimited exercise tolerance. [facility] Medical History Burn Essential hypertension Surgical History History of knee surgery History of tooth extraction Family History Mother Breast cancer Mental health disorder Father Cancer Mental health disorder Social History Household Members: Spouse and Children Housing: House Do you presently have visiting nurse or other home services: No Alcohol intake: current Alcohol intake frequency: holidays/special occasions only Alcohol type: beer Patient Tobacco Use Status: Former Tobacco user e-Cigarette/Vaping Use: Never Used Second Hand Smoke Exposure: Yes Advance Directives Date on File: 12/22/24 service: No Current occupational status: employed Current occupational exposures/hazards: No Cognitive needs: No Hearing needs: No Vision needs: Yes Review of Systems Const Denies weakness ENT Denies dizziness Card Denies chest pain, Denies chest pain with activity, Denies syncope, Denies rapid heart rate, Denies pedal edema, Denies edema, Denies leg edema, Denies lightheadedness, Denies palpitations, Denies dyspnea, Denies dyspnea on exertion and Denies orthopnea Resp Denies cough, Denies dyspnea and Denies dyspnea on exertion GI Denies hematochezia and Denies change in stool character Musc Denies abnormal gait, Denies muscle cramps, Denies muscle weakness, Denies numbness, Denies radiating pain into limb and Denies tingling Neuro Denies abnormal gait, Denies dizziness, Denies syncope, Denies numbness, Denies tingling and Denies weakness Endo Denies palpitations Physical Exam Vital Signs: Last Vital Signs Pulse 76 03/29/25 08:33 BP 122/80 03/29/25 08:33 BMI result Body Mass Index 27.6 Const General: comfortable and no acute distress Orientation/consciousness: patient oriented x3 HEENT Other: Unremarkable Head: Yes normal to inspection Neck Neck: Yes normal visual inspection Chest Chest palpation & inspection: normal inspection of the chest Resp Auscultation: clear to auscultation bilaterally Cardio Palpation: normal PMI Heart sounds: S1 normal heart sound present, S2 normal heart sound present, no gallops, no murmurs and no rubs GI Palpation (GI): Soft to palpation Back/Spine/Pelvis Other: unremarkable Skin General skin exam: no rashes or lesions noted Neuro General: patient oriented x3 Extrem General: Yes normal to inspection Psych Mental Status: mental status grossly normal Assessment & Plan Assessment & Plan (1) Abnormal EKG: Code(s): R94.31 - Abnormal electrocardiogram [ECG] [EKG] Category: Medical (2) Chest pain: Code(s): R07.9 - Chest pain, unspecified Category: Medical (3) Elevated blood pressure reading without diagnosis of hypertension: Code(s): R03.0 - Elevated blood-pressure reading, without diagnosis of hypertension Category: Medical Plan Today's blood pressure is normal but previous readings have been elevated intermittently. Hence seems like he might have intermittent hypertension. EKG in this could also be related to hypertension. Less likely ischemic heart disease. History of atypical chest pains but nothing recently. We will start cardiac workup with an echocardiogram and exercise stress test. With regard to blood pressure management, probably just monitor for now. Low- salt diet. May need screening for obstructive sleep apnea. Follow-up after testing. Discussion Notes During the visit, we discussed the importance of monitoring blood pressure and the potential need for lifestyle changes to manage hypertension. I explained the purpose of the echocardiogram and walking stress test to evaluate cardiac function and identify any underlying issues contributing to the patient's symptoms. Patient was informed and verbally consented to the use of an ambient scribe for clinic note documentation during this visit. Orders: Orders CA echo transthoracic complete Today I10 - Essential (primary) hypertension, R94.31 - Abnormal electrocardiogram [ECG] [EKG] CA stress test Today R07.2 - Precordial pain, R94.31 - Abnormal electrocardiogram [ECG] [EKG] Patient Instructions: - Monitor blood pressure regularly at home. - Follow up for scheduled echocardiogram and stress test. - Consider lifestyle modifications to manage blood pressure. Coding Level of Care Code New Pt Level 4 (47060) Complex EM visit Add On G2211 Diagnoses Abnormal EKG R94.31 Chest pain R07.9 Elevated blood pressure reading without diagnosis of hypertension R03.0
--- OUTSIDE RECORDS SUMMARY | 2025-03-29 08:43 | XMS_ITS | Data Portability ---
Author Organization [facility] [address] Address [address] [place] [address] Assessment No assessment recorded. Plan of Treatment Reminders Order Date Submit Date Provider Last Modified By Organization Details Last Modified Time Details Appointments None recorded. Lab None recorded. Referral None recorded. Procedures None recorded. Surgeries None recorded. Imaging None recorded. Medication Orders ofloxacin 0.3 % eye drops 2023 024 [id number], [address], [place], [phone], 4 11:34:18 Patient TargetsNo targets recorded. Patient InstructionsNo instructions recorded. Reason for Referral None Reported. Problems No Known Problems Procedures Surgical History Date Name Laterality Status Provider Name and Address Organization Details Recorded Time 4 OC-DOT PHYSICAL completed Tiana Smith MD - [facility] 2024 08:39:07 3 OC-UDS Send Out Template DOT completed [facility] 10/23/2022 14:38:31 Imaging Results [...] Organization Details Last Updated DateTime 4 0 286249. 28 g 28.1 kg/m2 190.5 cm 97 [degF] 14 /min 97 % 97 % 64 /min 142/94 mm[Hg] Padma Eder PA - [facility] 11:28:41 Social History Question Answer Notes LastModified by [address] Details LastModified Time Tobacco Smoking Status Never Smoker Padma Eder alva PA - [facility] 04/04/2024 11:26:45 Have You Had A Flu Shot This Season? Yes Information not available 04/04/2024 Have You Recently Traveled Abroad? No Information not available 04/04/2024 Sex: Unknown Functional Status Question Answer Note LastModified by [address] Details LastModified Time Do you use any [...] ICD10 Code Diagnosis IMO Codes Diagnosis Note [id number] [address] [facility] [address] [place] [address] 03/03/2017 15:25:47 03/03/2017 16:09:08 [id number] [address] [address] [place] [address] 03/04/2017 15:04:42 03/04/2017 16:53:54 [id number] [address] [place] [address] 04/18/2015 09:10:20 04/18/2015 10:00:05 [id number] Duke Anguiano [employer]PERATOR [address] [place] [address] 10/23/2022 14:20:04 10/23/2022 15:24:13 History and physical examination, occupation [id number] Z02.1 [id number] CECILIA Hagan [address] [address] [place] [address] 2024 08:02:22 2024 09:03:50 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 Denies any RX. Refer to scanned DOT physical exam forms and DOT certificat e for exam findings. Physical examination 588 0005 Z02.4 [id number] CECILIA Hagan [address] [place] [address] 04/04/2024 11:21:15 04/04/2024 11:36:01 Acute conjunctivitis of right eye [id number] 33183 H10.31 Based on your presentati on and [...] Borrego Member ID Guarantor Name 04/04/2024 1 [facility] [id number] Favio Rony [id number] Favio Rony 04/04/2024 PAY AT TOS Favio Rony OTHER OTHER Favio Rony 04/04/2024 1 MK (PPO) [id number] Favio L Rony [id number] Favio Rony 04/04/2024 OC-ESCREEN Favio Rony [id number] Favio Rony 04/04/2024 OC-PAY AT TIME OF SERVICE 2022 Favio Rony OTHER OTHER Favio Rony Notes Date Note Type Note Provider Name and Address Organization Details Recorded Time 04/04/2024 text/html 49 y/o male with 1 week of R eye redness and discharge, discomfort, but no real pain, no blurry vision CECILIA Hagan [address] [place], [address], PA - [facility] 04/04/2024 11:40:13
== END 2025-03-29 08:51 | disposition home or self-care (01) ==
LOC: HO.HCS 08:20
PROVIDERS: PCP Internal Medicine; Visit Provider Internal Medicine
DX: R94.31 Abnormal electrocardiogram [ECG] [EKG] (principal); R07.9 Chest pain, unspecified; R03.0 Elevated blood-pressure reading, without diagnosis of hypertension
CPT/HCPCS: 99214

== ENCOUNTER 2025-04-07 07:53 | Outpatient (RCR) | payer OTHER, SELFPAY ==
[2025-01-15 07:58] VITALS: BP 148/102; PULSE 62; O2SAT 97
--- NOTE | 2025-01-15 12:33 | MHC.PT.EP ---
[facility] [place] Office [place] Office [place] Office [address] Faraz Griffith [address] [phone] F: [phone] F: [phone] F: [phone] F: [phone] Physical Therapy Plan of Care Date of Evaluation: 01/15/25 Date of Surgery: 12/22/24 Diagnosis: S/P Rt QUAD TENDON REPAIR ON Assessment: 49 YO MALE REF TO PT S/P Rt QUAD TENDON REPAIR W DR POSADA ON 12/22/24-> REF TO PT CURRENTLY WBAT Rt LE W BRACE LOCKED IN EXTEN W CRUTCHES, PT TO INCR/ OPEN BRACE 15* EACH WEEK. 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 OBJECTIVE FINDINGS C/W POST OP COURSE: LIMITED FUNCT MOB, DECR Rt PATELLAR MOB, HEALING INCISION Rt ANT KNEE, SLUGGISH Rt QUAD, LIMITED ROM IN Rt KNEE, AND DISCOMFORT/ MILD EDEMA . HE KNOWLEDGEABLE OF HIS POST OP RESTRICTIONS. HE IS AGREEABLE W PT POC AND WE WILL PROCEED ACCORDINGLY. Frequency and Duration: The patient will be seen 2 x WK x 10 WKS Short Term Goals: PROTECT Rt QUAD TENDON REPAIR PROGRESS PROM Rt KNEE FLEXION REDUCE POST-OP SWELLING/ DISCOMFORT, MONITOR INCISIONAL HEALING AND SCAR MOB PROGRESS GAIT , WBAT Rt LE W BRACE IMPROVE Rt PATELLAR MOBILITY INCREASE / FACILITATE Rt QUAD MM INITIATE HEP Tip Stretcher Goals: INDEP HEP NORMAL GAIT MECH ON LEVEL AND STAIRS WFL AROM Rt KNEE/ LE IMPROVED LEFI, AT EVAL: Pt REGAIN FUNCTIONAL STRENGTH Treatment Plan: Modalities to reduce pain, spasms and effusion. Manual therapy to restore motion and function. Therapeutic exercise to improve strength and flexibility. Neuromuscular re-education for posture and balance. Therapeutic activities to return to functional activities of daily living. Electronically signed by: RHODA ZARATE,PT Please sign and return to therapist. Thank you for your referral.
--- NOTE | 2025-04-07 10:30 | MHC.PT.DC ---
[facility] [place] [facility] [place] [facility] [place] [facility] [address] Faraz Griffith [address] [phone] F: [phone] F: [phone] F: [phone] F: [phone] Physical Therapy Discharge Report Diagnosis: S/P Rt QUAD TENDON REPAIR ON 12/22/24 Date of Surgery: 12/22/24 Date of Evaluation: 01/15/25 Date of Discharge: Treatments to Date: 21 Cancellations to Date: No Shows to Date: Discharge Status: Discharge Summary: Pt is s/p right quad tendon repair on 12/22/[address] Powers and is 15 weeks post op as of 04/06/25. He was seen for skilled PT from 01/15/25-04/07/25 and has made excellent progress since SOC. He has improved his R knee AAROM to 120 degrees flexion. He has improved his score on LEFI outcome measure from 12/80 on initial PT evaluation to 58/80 today. He ascended/descended 4 6 stairs x 3 reps with reciprocal pattern and without UE support. He demonstrated improvements in quad strength noted throughout exercises and activity. He is independent and compliant with HEP. He is being D/C to HEP and is planning to return to work next week as he was cleared by ortho at last follow up. He has copy of HEP and therabands. No further questions or concerns reported at D/C Electronically signed by: Please sign and return to therapist. Thank you for your referral.
--- NOTE | 2025-04-07 10:31 | MHC.PT.DC ---
[facility] [place] [facility] [place] Office [place] Office [address] Faraz Griffith [address] [phone] F: [phone] F: [phone] F: [phone] F: [phone] Physical Therapy Discharge Report Diagnosis: S/P Rt QUAD TENDON REPAIR ON 12/22/24 Date of Surgery: 12/22/24 Date of Evaluation: 01/15/25 Date of Discharge: 04/07/25 Treatments to Date: 21 Cancellations to Date: No Shows to Date: Discharge Status: Improved Function Independent with HEP Discharge Summary: Pt is s/p right quad tendon repair on 12/22/[address] Powers and is 15 weeks post op as of 04/06/25. He was seen for skilled PT from 01/15/25-04/07/25 and has made excellent progress since SOC. He has improved his R knee AAROM to 120 degrees flexion. He has improved his score on LEFI outcome measure from 12/80 on initial PT evaluation to 58/80 today. He ascended/descended 4 6 stairs x 3 reps with reciprocal pattern and without UE support. He demonstrated improvements in quad strength noted throughout exercises and activity. He is independent and compliant with HEP. He is being D/C to HEP and is planning to return to work next week as he was cleared by ortho at last follow up. He has copy of HEP and therabands. No further questions or concerns reported at D/C Electronically signed by: Katie Sanchez, PT, DPT Please sign and return to therapist. Thank you for your referral.
== END 2025-04-07 10:29 | disposition home or self-care (01) ==
LOC: HO.PT 07:53
PROVIDERS: PCP Internal Medicine; Visit Provider Physician Assistant
DX: S76.111D Strain of right quadriceps muscle, fascia and tendon, subsequent encounter (principal); W16.112D Fall into natural body of water striking water surface causing other injury, subsequent encounter
CPT/HCPCS: 97110; 97112; 97116; 97140; 97162; 97530; 97535

== ENCOUNTER → 2025-05-10 08:55 | Outpatient (REF) | payer OTHER, SELFPAY ==
--- NOTE | 2025-05-10 08:58 | CA_ITS ---
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 The visually estimated ejection fraction is between 60-65%. Spectral Doppler is indicative of a normal filling pattern. Right Ventricle Normal right ventricular cavity size and systolic function. Atria Both atria are normal in size. There is no evidence of interatrial shunt. Aortic Valve Normal aortic valve structure and function. There is no aortic valve stenosis. There is no aortic valve regurgitation. Mitral Valve Normal mitral valve structure and function. There is trace mitral valve regurgitation. There is no mitral valve stenosis. Pulmonic Valve The pulmonic valve is likely normal. Tricuspid Valve Normal tricuspid valve structure. There is trace tricuspid valve regurgitation. The right ventricular systolic pressure is normal. The right ventricular systolic pressure is 24 mmHg. Normal right atrial pressure. There is no evidence of pulmonary hypertension. Great Vessels The pulmonary artery was not well visualized. There is mild dilatation of the sinuses of Valsalva and no dilatation of the ascending aorta measuring 3.50 cm. Venous The inferior vena cava is normal in size and collapses greater than 50% with inspiration. Pericardium/Pleural There is no evidence of pericardial effusion. Prior Study Comparison No prior study available for comparison. Measurements 2D Linear Measurements IVSd: 0.99 0.6-0.9/0.6-1.0 cm LVIDd: 4.91 3.9-5.3/4.2-5.9 cm LVIDd Index: 2.14 2.4-3.2/2.2-3.1 cm/m2 LVIDs: 3.20 2.0-3.6 cm LVPWd: 0.78 0.7-1.1 cm LA Diam: 3.50 2.7-3.8/3.0-4.0 cm LAIDs Index: 1.53 1.5-2.3 cm/m2 LV Mass: 186.62 67-162/88-224 g LV Mass Index: 81.49 43-95/49-115 g/m2 LVOT Diam: 2.60 3.0+(-)1.3 cm 2D Systolic Function EF 4C: 57.10 >55% EF 2C: 62.80 >55% EF BiP: 60.50 >55% Mitral Valve MV Pk E: 0.70 MV PK A: 0.50 MV Decel Time: 173.00 E/A: 1.40 E'Lateral: 11.60 E'Medial: 7.29 E/E' Med: 9.70 E/E' Lat: 6.10 PHT: 51.00 MVA PHT: 4.31 Decel [place]: 4.06 Aortic Valve AoV Pk Brandon: 1.16 AoV Mn Brandon: 0.77 AoV VTI: 0.23 AoV Pk Grad: 5.00 Aov Mn Grad: 3.00 GIRMA Cont.VTI: 4.22 LVOT LVOT Pk Brandon: 0.95 LVOT Mn Brandon: 0.55 LVOT VTI: 0.19 LVOT Pk Grad: 4.00 LVOT Mn Grad: 1.00 LVOT Diam: 2.60 LVOT Area: 5.31 Diastolic Function MV Pk E: 0.70 MV Pk A: 0.50 E/A: 1.40 E'Medial: 7.29 E/E' Med: 9.70 E' Laterial: 11.60 E/E' Lat: 6.10 Right Ventricle TAPSE (mm): 21.90 TVS' Brandon: 12.60 Tricuspid Valve TR Pk Brandon: 2.31 TR Pk Grad: 21.00 RA Press: 3.00 RVSP: 24.00 Great Vessels Aorta Sinus of Valsalva: 4.08 2.0-3.5 cm Ao Asc: 3.50 2.1-3.4 cm Ao Arch: 3.40 Pulmonary Veins Pulm Vein S/D 1.10 Updated in Other Vendor System with Status of Final Kwaku Hughes MD electronically signed on 05/11/2025 4:28:48 PM with status of Final
--- NOTE | 2025-05-10 08:58 | CA_ITS ---
Acquisition Time: 2025-05-10 09:52:11 Total Exercise Time: 00:06:30 Test Indications: ABN EKG Medications: SEE H&P Protocol: DEMETRI Max HR: 148 BPM 87% of Pred: 169 BPM Max BP: 190/100 mmHG Max Work Load: 7.7 METS Exercise stress test with exercise 6 mins 30 secs of Demetri Protocol, achieving 88% MPHR, without any reports of CP or SOB, without any arrythmias, with normotensive response to exercise- baseline HTN at 160/100. With baseline T wave inversion, otherwise without any EKG changes with exercise meeting criteria for ischemia. In recovery, pt continued to feel well. Test reviewed with Dr. Hughes. Referred By: Sven Reed Electronically Signed By: Kevin Stanton
== END ==
LOC: HO.CARD 08:55
PROVIDERS: PCP Internal Medicine; Visit Provider Internal Medicine
DX: R94.31 Abnormal electrocardiogram [ECG] [EKG] (principal); I10 Essential (primary) hypertension; R07.2 Precordial pain
CPT/HCPCS: 93017; 93306

== ENCOUNTER → 2025-05-10 08:58 | Outpatient (BNV) | payer OTHER, SELFPAY | PROVIDERS: PCP Internal Medicine | DX: R94.31 Abnormal electrocardiogram [ECG] [EKG] (principal) | CPT/HCPCS: 93306 ==

== ENCOUNTER 2025-05-17 08:58 | Outpatient (AMB) | payer OTHER, SELFPAY ==
[2025-05-17 09:53] VITALS: BP 120/82; PULSE 64; O2SAT 97; BMI 29.2
--- NOTE | 2025-05-17 09:53 | MHC.OFFWIV ---
Intake Vital Signs 05/17/25 09:53 Height 6 ft 3 in Weight 234 lb BMI 29.2 BP 120/82 Blood Pressure Location Rt brachial Position Sitting Pulse 64 Pulse Source Pulse Oximeter Pulse Oximetry (%) 97 Oxygen Delivery Method Room Air Intake Visit Reasons: EP Right eye irritation/itchiness Intake Note: Patient presents c/o right eye irritated & red x1-2 weeks & spread to left eye. Patient Tobacco Use Status: Former Tobacco user Allergies No Known Allergies Allergy (Verified 05/17/25 09:56) HPI HPI Comments History of Present Illness Details This is a 50-year-old male with no stated past medical history presenting for evaluation of bilateral eye irritation. Patient states approximately 10 days ago his right eye was red and irritated in the morning had sticky yellow discharge. Patient states the symptoms have now spread to the left eye. Patient does not wear glasses or contacts for his vision and denies having any visual changes, floaters, flashes, light sensitivity or foreign body sensation. Patient has not used any atqd-zlb-gslozkk eyedrops for relief of his symptoms. [facility] Medical History Burn Essential hypertension Surgical History History of knee surgery History of tooth extraction Family History Mother Breast cancer Mental health disorder Father Cancer Mental health disorder Social History Household Members: Spouse and Children Housing: House Do you presently have visiting nurse or other home services: No Alcohol intake: current Alcohol intake frequency: holidays/special occasions only Alcohol type: beer Patient Tobacco Use Status: Former Tobacco user e-Cigarette/Vaping Use: Never Used Second Hand Smoke Exposure: Yes Advance Directives Date on File: 12/22/24 service: No Current occupational status: employed Current occupational exposures/hazards: No Cognitive needs: No Hearing needs: No Vision needs: Yes Review of Systems Const All systems reviewed & are unremarkable except as noted in HPI and below Reports as per HPI and Reports no additional complaints Eyes Reports as per HPI, Reports no additional complaints, Denies blind spots, Denies blurry vision, Denies change in vision, Reports eye discharge, Denies floaters, Reports irritation, Denies loss of vision, Denies requires corrective lenses and Denies photophobia ENT Reports no additional complaints Neuro Reports no additional complaints, Denies confusion and Denies loss of vision Psych Reports no additional complaints and Denies confusion Physical Exam Vital Signs: Last Vital Signs Pulse 64 05/17/25 09:53 BP 120/82 05/17/25 09:53 Pulse Ox 97 05/17/25 09:53 Oxygen Delivery Method Room Air 05/17/25 09:53 BMI result Body Mass Index 29.2 Const General: cooperative, healthy appearing, comfortable, no acute distress, well developed, alert, awake and Physically active; No confusion or lethargic Nutritional Appearance: average body habitus Orientation/consciousness: patient oriented x3, No confusion and No lethargic Limitations: no limitations Eyes Visual Beckman: normal visual beckman by confrontation Alignment and Position: alignment normal Periorbital: periorbital findings normal Eyelids: Yes eyelids normal Conjunctivae: conjunctival abnormal bilateral conjunctival injection diffuse; Negative for conjunctival icterus, without chemosis, without discharge and without subconjunctival hemorrhages Pupils: Equal, round and reactive pupils present EOM: EOMs intact bilaterally Direct Ophthalmoscopy: normal light reflex, no photophobia and No photophobia Neuro General: patient oriented x3 and No confusion Cranial nerves: Yes Equal, round and reactive pupils present Psych Appearance: grossly normal Mental Status: mental status grossly normal Insight: Good insight present (Psych) Judgement: Good judgement present (Psych) Assessment & Plan Assessment & Plan (1) Conjunctivitis: Comment: Patient's history coupled with his examination is consistent with a bacterial conjunctivitis. Code(s): H10.9 - Unspecified conjunctivitis Qualifiers: Conjunctivitis type: acute Acute conjunctivitis type: bacterial Laterality: bilateral Qualified Code(s): H10.33 - Unspecified acute conjunctivitis, bilateral Plan: Erythromycin ointment 1 cm both eyes q.i.d. x7 days. Medications: New erythromycin 1cm QID OU x 7days 1 cm ophthalmic (eye) QID 3.5 grams 0RF Coding Level of Care Code Est Pt Level 3 (99072) Diagnoses Acute bacterial conjunctivitis of both eyes H10.33 Conjunctivitis type: acute Acute conjunctivitis type: bacterial Laterality: bilateral Time Spent (min) 20
== END 2025-05-17 10:17 | disposition home or self-care (01) ==
PROVIDERS: PCP Internal Medicine; Visit Provider Physician Assistant
DX: H10.33 Unspecified acute conjunctivitis, bilateral (principal)